=== PATIENT | female | born 1935 | race Caucasian/White ===

== ENCOUNTER → 2017-12-22 14:30 | Outpatient (CLI) | payer MEDICARE, BC, SELFPAY ==
[2017-12-22 15:00] LABS: INR 2.82 (0.9-1.1); Prothrombin Time 30.8 seconds (9.4-11.8)
== END ==
PROVIDERS: PCP Family Medicine; Visit Provider Family Medicine
DX: Z79.01 Long term (current) use of anticoagulants (principal); I48.91 Unspecified atrial fibrillation; Z51.81 Encounter for therapeutic drug level monitoring
CPT/HCPCS: 36415; 85610

== ENCOUNTER → 2018-01-27 16:25 | Outpatient (CLI) | payer MEDICARE, BC, SELFPAY ==
[2018-01-27 16:45] LABS: INR 3.06 (0.9-1.1); Prothrombin Time 33.4 seconds (9.4-11.8)
== END ==
PROVIDERS: Visit Provider Family Medicine
DX: Z79.01 Long term (current) use of anticoagulants (principal); Z51.81 Encounter for therapeutic drug level monitoring; I48.91 Unspecified atrial fibrillation
CPT/HCPCS: 36415; 85610

== ENCOUNTER → 2018-02-04 14:34 | Outpatient (CLI) | payer MEDICARE, BC, SELFPAY ==
[2018-02-04 15:06] LABS: INR 3.22 (0.9-1.1); Prothrombin Time 35.2 seconds (9.4-11.8)
== END ==
PROVIDERS: Visit Provider Family Medicine
DX: Z79.01 Long term (current) use of anticoagulants (principal); Z51.81 Encounter for therapeutic drug level monitoring; I48.91 Unspecified atrial fibrillation
CPT/HCPCS: 36415; 85610

== ENCOUNTER 2018-02-07 13:28 | Inpatient (IN) | payer MEDICARE, BC, SELFPAY ==
[2018-02-07] VITALS (9 sets, daily range): BP systolic 95–105; BP diastolic 57–74; PULSE 80–100; RESP 20; TEMP 36.8–37.6; O2SAT 89–94; BMI 27.3
--- NOTE | 2018-02-07 13:46 | XR_ITS ---
XR chest 2V COMPARISON: None HISTORY: Cough and shortness of breath TECHNIQUE: PA and lateral chest FINDINGS: Borderline emphysematous changes seen with mild hyperexpansion lung bonilla. See no infiltrate. The may be minimal post inflammatory scarring left apex. There is borderline cardio megaly without failure. There is minor dextroscoliotic curvature. Of the thoracic spine and levo scoliotic curvature of the lumbar spine. IMPRESSION: Borderline COPD, no acute chest pathology noted
[2018-02-07 14:31] LABS: Anion Gap 14.6 mEq/L (5-15); Blood Urea Nitrogen 21 mg/dL (7-18); Carbon Dioxide 25 mmol/L (21.0-32.0); Chloride 101 mmol/L (98-107); Creatinine Clearance Estimated 35 mL/min (0-300); Creatinine,Serum 1.54 mg/dL (0.55-1.02); Estimated Glomerular Filt Rate 32 ml/min (>60); GFR (African American) 39 ML/MIN (>60); Glucose 143 mg/dL (74-106); Potassium 4.6 mmoL/L (3.5-5.1); Sodium 136 mmol/L (136-145)
[2018-02-07 14:36] LABS: Basophils % 0.4 % (0.1-2.0); Eosinophils # 0.2 K/mm3 (0.0-0.4); Eosinophils % 2.2 % (0.1-12.0); Hematocrit 40.6 % (37.0-47.0); Hemoglobin 12.9 g/dL (12.2-16.2); Lymphocytes # 1.5 K/mm3 (0.7-4.5); Lymphocytes % 21.3 K/mm3 (10-50); Mean Corpuscular HGB Conc 31.8 g/dL (31.8-35.4); Mean Corpuscular Hemoglobin 28.8 pg (27.0-31.2); Mean Corpuscular Volume 90.5 fl (81-99); Mean Platelet Volume 9.1 fl (7.4-10.4); Monocytes # 0.5 K/mm3 (0.1-1.0); Monocytes % 6.9 % (1.7-9.3); Neutrophils # 4.8 K/mm3 (1.8-7.8); Neutrophils % 69.2 % (37.0-80.0); Platelet Count 144 K/mm3 (142-424); Red Blood Count 4.49 M/mm3 (4.20-5.40); Red Cell Distribution Width 15.2 % (11.5-17.5); White Blood Count 6.9 K/mm3 (4.8-10.8)
[2018-02-07 14:39] LABS: Lactic Acid 1.5 mmol/L (0.4-2.0)
[2018-02-07 14:52] LABS: Mycoplasma Pneumo IGM (Rapid) Non-Reactive (Non-Reactiv)
--- NOTE | 2018-02-07 14:58 | PC.NURSE ---
PATIENT NOW LEAVING OFF THE UNIT FOR HER CHEST XRAY.
[2018-02-07 16:37] LABS: POC Glucose,Bedside 138 mg/dL (70-110)
--- NOTE | 2018-02-07 16:52 | HMH.HP ---
*Admission Date: 02/07/18 *Chief complaint: Cough and shortness of breath *History of present illness: 83 yr old female with h/o atrial fibrillation, type 2 diabetes and remote breast cancer presented to clinic today with c/o cough and congestion for about 4 days. Initially started with nasal symptoms and has progressed to cough that is productive of thick sputum, difficult to expectorate and shortness of breath. Her son has had similar symptoms recently. In the office she was found to be in an irregular rhythm consistent with her history of atrial fibrillation, with a rate of 130, and pulse oximetry of 90% on room air. Her heart rate improved to the 90's with supplemental oxygen. She is normally followed by Dr Peterson in [place] for her primary care [facility] History I have reviewed the patient's past medical history: Yes Medical History: Reports:: Atrial Fibrillation, Cancer, Diabetes Mellitus Type 2 Denies:: Diabetes Mellitus Type 1, MRSA Other Medical History: Reports: Arthritis, Chemotherapy, Hypothyroidism, Radiation Therapy, Thyroid Disease Laterality Cases: Left: Mastectomy Other Surgeries: Yes: Cancer Surgery, Hysterectomy-Total, Other (mastectomy left, r/l hip replace) Amputation: No Fractures: No - *Social History Educational Level: Completed High School Smoking Status: Never smoker Alcohol Intake: never Occupational Status: retired Housing: house - Psychiatric History Expresses thoughts of harming self/others: None Suicide Plan Description: No Plan *Family Hx:: Heart Attack, Hyperlipidemia, Hypertension Review of Systems - Review of Systems Review of systems:: pertinent systems reviewed and negative unless documented below - Constitutional Reports chills, Reports fever(s), Reports weakness - ENT Reports nasal congestion - *Cardiovascular Reports shortness of breath with activity, Reports fast heart rate - *Respiratory Reports chest congestion, Reports cough, Reports shortness of breath with activity - *Gastrointestinal Reports nausea - *Neurologic Reports weakness Meds Home Medications Medication Instructions Recorded Confirmed Type Acetaminophen [Tylenol] 500 mg PO Q4HP PRN 02/07/18 02/07/18 History Cholecalciferol (Vitamin D3) 1,000 unit PO DAILY 02/07/18 02/07/18 History [Vitamin D3 1,000 Unit Cap] Digoxin [Digoxin 0.25mg Tablet] 250 mcg PO DAILY 02/07/18 02/07/18 History Furosemide [Furosemide 20mg Tab] 20 mg PO DAILY 02/07/18 02/07/18 History Letrozole [Letrozole] 2.5 mg PO DAILY 02/07/18 02/07/18 History Levothyroxine Sodium 100 mcg PO DAILY 02/07/18 02/07/18 History [Levothyroxine 125mcg (0.125mg) Tab] Lisinopril [Lisinopril 30mg Tablet] 45 mg PO HS 02/07/18 02/07/18 History Lovastatin [Lovastatin] 40 mg PO DAILY 02/07/18 02/07/18 History Metformin HCl [Metformin 500mg 500 mg PO BID 02/07/18 02/07/18 History Tablet] Multivit-Min/Iron/Folic/Lutein 0.5 each PO BID 02/07/18 02/07/18 History [Centrum Silver Women Tablet] Potassium Chloride [Klor-Con 10 meq PO DAILY 02/07/18 02/07/18 History Sprinkle 10mEq] Sertraline HCl [Zoloft 50mg tablet] 50 mg PO DAILY 02/07/18 02/07/18 History Warfarin Sodium [Warfarin Sodium] 8 mg PO DAILY 02/07/18 02/07/18 History glipiZIDE [Glucotrol 5mg tablet] 5 mg PO BID 02/07/18 02/07/18 History Allergies Allergy/AdvReac Type Severity Reaction Status Date / Time iodine Allergy Intermediate Rash Verified 02/07/18 14:42 Exam Vital signs and Labs for Last 24 Hours: Temp Pulse Resp BP Pulse Ox 98.3 F 80 20 102/74 89 L 02/07/18 13:57 02/07/18 16:00 02/07/18 13:57 02/07/18 13:57 02/07/18 14:13 Laboratory Results - last 24 hr 02/07/18 14:00: Mycoplasma pneumon IgM Non-reactive 02/07/18 14:00: WBC 6.9, RBC 4.49, Hgb 12.9, Hct 40.6, MCV 90.5, MCH 28.8, MCHC 31.8, RDW 15.2, Plt Count 144, MPV 9.1, Neut % (Auto) 69.2, Lymph % (Auto) 21.3, [place] % (Auto) 6.9, Eos % (Auto) 2.2, Baso % (Auto) 0.4, Neut # (Auto) 4.8, Lym
--- NOTE | 2018-02-07 16:57 | P.HP_ITS ---
*Admission Date: 02/07/18 *Chief complaint: Cough and shortness of breath *History of present illness: 83 yr old female with h/o atrial fibrillation, type 2 diabetes and remote breast cancer presented to clinic today with c/o cough and congestion for about 4 days. Initially started with nasal symptoms and has progressed to cough that is productive of thick sputum, difficult to expectorate and shortness of breath. Her son has had similar symptoms recently. In the office she was found to be in an irregular rhythm consistent with her history of atrial fibrillation , with a rate of 130, and pulse oximetry of 90% on room air. Her heart rate improved to the 90's with supplemental oxygen. She is normally followed by Dr Peterson in [place] for her primary care [facility] History I have reviewed the patient's past medical history: Yes Medical History: Reports:: Atrial Fibrillation, Cancer, Diabetes Mellitus Type 2 Denies:: Diabetes Mellitus Type 1, MRSA Other Medical History: Reports: Arthritis, Chemotherapy, Hypothyroidism, Radiation Therapy, Thyroid Disease Laterality Cases: Left: Mastectomy Other Surgeries: Yes: Cancer Surgery, Hysterectomy-Total, Other (mastectomy left , r/l hip replace) Amputation: No Fractures: No - *Social History Educational Level: Completed High School Smoking Status: Never smoker Alcohol Intake: never Occupational Status: retired Housing: house - Psychiatric History Expresses thoughts of harming self/others: None Suicide Plan Description: No Plan *Family Hx:: Heart Attack, Hyperlipidemia, Hypertension Review of Systems - Review of Systems Review of systems:: pertinent systems reviewed and negative unless documented below - Constitutional Reports chills, Reports fever(s), Reports weakness - ENT Reports nasal congestion - *Cardiovascular Reports shortness of breath with activity, Reports fast heart rate - *Respiratory Reports chest congestion, Reports cough, Reports shortness of breath with activity - *Gastrointestinal Reports nausea - *Neurologic Reports weakness Meds Home Medications Medication Instructions Recorded Confirmed Type Acetaminophen [Tylenol] 500 mg PO Q4HP PRN 02/07/18 02/07/18 History Cholecalciferol (Vitamin D3) 1,000 unit PO DAILY 02/07/18 02/07/18 History [Vitamin D3 1,000 Unit Cap] Digoxin [Digoxin 0.25mg Tablet] 250 mcg PO DAILY 02/07/18 02/07/18 History Furosemide [Furosemide 20mg Tab] 20 mg PO DAILY 02/07/18 02/07/18 History Letrozole [Letrozole] 2.5 mg PO DAILY 02/07/18 02/07/18 History Levothyroxine Sodium 100 mcg PO DAILY 02/07/18 02/07/18 History [Levothyroxine 125mcg (0.125mg) Tab] Lisinopril [Lisinopril 30mg Tablet] 45 mg PO HS 02/07/18 02/07/18 History Lovastatin [Lovastatin] 40 mg PO DAILY 02/07/18 02/07/18 History Metformin HCl [Metformin 500mg 500 mg PO BID 02/07/18 02/07/18 History Tablet] Multivit-Min/Iron/Folic/Lutein 0.5 each PO BID 02/07/18 02/07/18 History [Centrum Silver Women Tablet] Potassium Chloride [Klor-Con 10 meq PO DAILY 02/07/18 02/07/18 History Sprinkle 10mEq] Sertraline HCl [Zoloft 50mg tablet] 50 mg PO DAILY 02/07/18 02/07/18 History Warfarin Sodium [Warfarin Sodium] 8 mg PO DAILY 02/07/18 02/07/18 History glipiZIDE [Glucotrol 5mg tablet] 5 mg PO BID 02/07/18 02/07/18 History Allergies Allergy/AdvReac Type Severity Reaction Status Date / Time iodine Allergy Intermediate Rash Verified 02/07
[2018-02-07 17:08] LABS: Adenovirus,PCR Not Detected (NotDetected); Bordetella Pertussis Not Detected (NotDetected); Chlamydophila Pneumoniae, PCR Not Detected (NotDetected); Coronavirus 229E Not Detected (NotDetected); Coronavirus NL63 Not Detected (NotDetected); Coronavirus OC43 Not Detected (NotDetected); Coronovirus HKU1,PCR Not Detected (NotDetected); Human Metapneumovirus Not Detected (NotDetected); Influenza A, PCR Not Detected (NotDetected); Influenza AH1, 2009 Not Detected (NotDetected); Influenza AH1, PCR Not Detected (NotDetected); Influenza AH3,PCR Not Detected (NotDetected); Mycoplasma Pneumoniae, PCR Not Detected (NotDected); Parainfluenza 1, PCR Not Detected (NotDetected); Parainfluenza 2, PCR Not Detected (NotDetected); Parainfluenza 3, PCR Not Detected (NotDetected); Parainfluenza 4, PCR Not Detected (NotDetected); Respiratory Syncytial Virus Not Detected (NotDetected); Rhinovirus/Enterovirus Not Detected (NotDetected)
[2018-02-07 18:21] LABS: Influenza B, PCR Detected (NotDetected)
--- NOTE | 2018-02-07 18:30 | PC.NURSE ---
PATIENT ADMITTED WITH CAP, HAS BEEN STARTED ON LEVAQUIN IV PER THE PROTOCOL, VSS. BLOOD CULTURES ARE PENDING AND WAITING FOR HER PCR TO POST. CXR WAS NEG. FOR PNEUMONIA. WILL CONTINUE TO MONITOR. WE ARE STILL NEEDING TO GET A SPUTUM FROM THE PATIENT WELL.
--- NOTE | 2018-02-07 19:13 | PC.NURSE ---
report given to [facility]
--- NOTE | 2018-02-07 19:34 | PC.NURSE ---
REPORT TO MASTER [facility]
[2018-02-07 20:40] LABS: POC Glucose,Bedside 126 mg/dL (70-110)
[2018-02-08] VITALS (17 sets, daily range): BP systolic 99–123; BP diastolic 50–67; PULSE 72–97; RESP 18–22; TEMP 36.7–37.4; O2SAT 89–96
--- NOTE | 2018-02-08 04:44 | PC.NURSE ---
Addendum entered by Shonda Harris RN 02/08/18 04:45: CONTROLLED ATRIAL FIB ON TELEMETRY. Original Note: PT HAS BEEN AWAKE MOST OF NIGHT. OXYGEN AT 2L PER NC. NONPRODUCTIVE COUGH MOSTLY. DID SEND A SPUTUM TO LAB.
[2018-02-08 06:14] LABS: POC Glucose,Bedside 132 mg/dL (70-110)
[2018-02-08 07:12] LABS: Basophils % 0.5 % (0.1-2.0); Eosinophils # 0.1 K/mm3 (0.0-0.4); Eosinophils % 2.3 % (0.1-12.0); Hematocrit 36.1 % (37.0-47.0); Hemoglobin 11.7 g/dL (12.2-16.2); Lymphocytes # 2.1 K/mm3 (0.7-4.5); Lymphocytes % 35.8 K/mm3 (10-50); Mean Corpuscular HGB Conc 32.4 g/dL (31.8-35.4); Mean Corpuscular Volume 89.3 fl (81-99); Monocytes # 0.4 K/mm3 (0.1-1.0); Neutrophils # 3.2 K/mm3 (1.8-7.8); Neutrophils % 54.4 % (37.0-80.0); Platelet Count 125 K/mm3 (142-424); Red Blood Count 4.04 M/mm3 (4.20-5.40); Red Cell Distribution Width 15.4 % (11.5-17.5); White Blood Count 5.9 K/mm3 (4.8-10.8)
[2018-02-08 07:24] LABS: Anion Gap 14.1 mEq/L (5-15); Blood Urea Nitrogen 20 mg/dL (7-18); Carbon Dioxide 25 mmol/L (21.0-32.0); Chloride 103 mmol/L (98-107); Creatinine Clearance Estimated 43 mL/min (0-300); Creatinine,Serum 1.27 mg/dL (0.55-1.02); Estimated Glomerular Filt Rate 40 ml/min (>60); GFR (African American) 49 ML/MIN (>60); Glucose 144 mg/dL (74-106); Potassium 4.1 mmoL/L (3.5-5.1); Sodium 138 mmol/L (136-145)
[2018-02-08 07:25] LABS: INR 2.13 (0.9-1.1); Prothrombin Time 23.2 seconds (9.4-11.8)
--- NOTE | 2018-02-08 07:28 | P.CONPHA_ITS ---
[facility] Pharmacy VTE Monitoring - Patient Demographics Admission date: 02/07/18 Report Date: 02/08/18 Time: 07:28 Allergies/Adverse Reactions: Patient Allergies iodine Allergy (Intermediate, Verified 02/07/18 14:42) Rash Height: 1.7 m Weight: 79.095 kg Patient Problems: Current Active Problems CAP (community acquired pneumonia) (Acute) Atrial fibrillation with RVR (Acute) Mild dehydration (Acute) SHIMON (acute kidney injury) (Acute) Diabetes type 2, controlled (Chronic) - VTE Risk Labs: VTE Related Lab Results Hgb 12.9 g/dL (12.2-16.2) 02/07/18 14:00 Hct 40.6 % (37.0-47.0) 02/07/18 14:00 Plt Count 144 K/mm3 (142-424) 02/07/18 14:00 BUN 21 mg/dL (7-18) H 02/07/18 14:00 Creatinine 1.54 mg/dL (0.55-1.02) H 02/07/18 14:00 Estimated Creat Clear 35 mL/min (0-300) 02/07/18 14:00 Was VTE Risk Assessment Performed: Yes VTE Score: 4 VTE Risk Level: Low Risk - Prophylaxis VTE Prophylaxis Ordered?: Yes Types of VTE Prophylaxis: TEDS Knee High, Pharmacological Location of Applied Device: Bilateral Lower Extremeties, Not Applicable Pharmacologic Type: Warfarin - VTE Diagnosis Confirmed Treatment or plan recommended: Continue Current Treatment
[2018-02-08 07:44] LABS: Digoxin 0.62 ng/mL (1.15-2.56)
--- NOTE | 2018-02-08 09:07 | HMH.ACPN2 ---
Internal Medicine - PN: Subj *Date: 02/08/18 *Time: 07:45 Interval history: Patient is resting in bed without complaint. States she is feeling a little better. Alert and oriented x3. Rate and rhythm regular. Loose rhonchi with crackles RML/RLL. Abdomen soft and nontender. Exam Vital signs and Labs for Last 24 Hours: Temp Pulse Resp BP Pulse Ox 99.4 F 88 18 99/57 93 L 02/08/18 07:31 02/08/18 07:31 02/08/18 07:31 02/08/18 07:31 02/08/18 07:31 Laboratory Results - last 24 hr 02/07/18 14:00: Mycoplasma pneumon IgM Non-reactive 02/07/18 14:00: WBC 6.9, RBC 4.49, Hgb 12.9, Hct 40.6, MCV 90.5, MCH 28.8, MCHC 31.8, RDW 15.2, Plt Count 144, MPV 9.1, Neut % (Auto) 69.2, Lymph % (Auto) 21.3, [place] % (Auto) 6.9, Eos % (Auto) 2.2, Baso % (Auto) 0.4, Neut # (Auto) 4.8, Lymph # (Auto) 1.5, [place] # (Auto) 0.5, Eos # (Auto) 0.2, Baso # (Auto) 0.0 02/07/18 14:00: Sodium 136, Potassium 4.6, Chloride 101, Carbon Dioxide 25, Anion Gap 14.6, BUN 21 H, Creatinine 1.54 H, Estimated Creat Clear 35, Estimated GFR 32 L, Est GFR ( Amer) 39 L, Glucose 143 H 02/07/18 14:00: Lactic Acid 1.5 02/07/18 16:29: POC Glucose 138 02/07/18 17:00: Chlamy pneumoniae PCR Not detected, Adenovirus (PCR) Not detected, B.parapertussis DNA PCR Not detected, Coronavirus OC43 (PCR) Not detected, Coronavirus HKU1 (PCR) Not detected, Coronavirus 229E (PCR) Not detected, Coronavirus NL63 (PCR) Not detected, Human Metapneumovir PCR Not detected, Influenza A (H1) PCR Not detected, Influ A (H1N1/09) PCR Not detected, Influenza A (H3) PCR Not detected, Influenza Type A (PCR) Not detected, Influenza Type B (PCR) Detected A, M. pneumoniae (PCR) Not detected, Parainfluenza 1 (PCR) Not detected, Parainfluenza 2 (PCR) Not detected, Parainfluenza 3 (PCR) Not detected, Parainfluenza 4 (PCR) Not detected, RSV (PCR) Not detected, Entero/Rhino (PCR) Not detected 02/07/18 20:02: POC Glucose 126 02/08/18 06:04: POC Glucose 132 02/08/18 06:30: WBC 5.9, RBC 4.04 L, Hgb 11.7 L, Hct 36.1 L, MCV 89.3, MCH 29.0, MCHC 32.4, RDW 15.4, Plt Count 125 L, MPV 9.0, Neut % (Auto) 54.4, Lymph % (Auto) 35.8, [place] % (Auto) 7.0, Eos % (Auto) 2.3, Baso % (Auto) 0.5, Neut # (Auto) 3.2, Lymph # (Auto) 2.1, [place] # (Auto) 0.4, Eos # (Auto) 0.1, Baso # (Auto) 0.0 02/08/18 06:30: Sodium 138, Potassium 4.1, Chloride 103, Carbon Dioxide 25, Anion Gap 14.1, BUN 20 H, Creatinine 1.27 H, Estimated Creat Clear 43, Estimated GFR 40 L, Est GFR ( Amer) 49 L D, Glucose 144 H 02/08/18 06:30: PT 23.2 H, INR 2.13 H 02/08/18 06:30: Digoxin 0.62 L I & O for Last 24 hours: Intake & Output 02/05/18 02/06/18 02/07/18 02/08/18 11:59 11:59 11:59 11:59 Intake Total 1522 / 1522 Balance 1522 / 1522 Weight 174 lb 6 oz Assessment and Plan (1) CAP (community acquired pneumonia) Current visit: Yes Status: Acute Category: Medical Code(s): J18.9 - Pneumonia, unspecified organism (2) Atrial fibrillation with RVR Current visit: Yes Status: Acute Category: Medical Code(s): I48.91 - Unspecified atrial fibrillation (3) Mild dehydration Current visit: Yes Status: Acute Category: Medical Code(s): E86.0 - Dehydration (4) SHIMON (acute kidney injury) Current visit: Yes Status: Acute Category: Medical Code(s): N17.9 - Acute kidney failure, unspecified (5) Diabetes type 2, controlled Current visit: Yes Status: Chronic Category: Medical Code(s): E11.9 - Type 2 diabetes mellitus without complications - Assessment and plan all Dx Assessment and Plan for all problems:: Continue IV antibiotics and nebulizer treatment. INR stable today. Will recheck in the am.
--- NOTE | 2018-02-08 09:10 | P.PN_ITS ---
Internal Medicine - PN: Subj *Date: 02/08/18 *Time: 07:45 Interval history: Patient is resting in bed without complaint. States she is feeling a little better. Alert and oriented x3. Rate and rhythm regular. Loose rhonchi with crackles RML/RLL. Abdomen soft and nontender. Exam Vital signs and Labs for Last 24 Hours: Temp Pulse Resp BP Pulse Ox 99.4 F 88 18 99/57 93 L 02/08/18 07:31 02/08/18 07:31 02/08/18 07:31 02/08/18 07:31 02/08/18 07:31 Laboratory Results - last 24 hr 02/07/18 14:00: Mycoplasma pneumon IgM Non-reactive 02/07/18 14:00: WBC 6.9, RBC 4.49, Hgb 12.9, Hct 40.6, MCV 90.5, MCH 28.8, MCHC 31.8, RDW 15.2, Plt Count 144, MPV 9.1, Neut % (Auto) 69.2, Lymph % (Auto) 21.3 , [place] % (Auto) 6.9, Eos % (Auto) 2.2, Baso % (Auto) 0.4, Neut # (Auto) 4.8, Lymph # (Auto) 1.5, [place] # (Auto) 0.5, Eos # (Auto) 0.2, Baso # (Auto) 0.0 02/07/18 14:00: Sodium 136, Potassium 4.6, Chloride 101, Carbon Dioxide 25, Anion Gap 14.6, BUN 21 H, Creatinine 1.54 H, Estimated Creat Clear 35, Estimated GFR 32 L, Est GFR ( Amer) 39 L, Glucose 143 H 02/07/18 14:00: Lactic Acid 1.5 02/07/18 16:29: POC Glucose 138 02/07/18 17:00: Chlamy pneumoniae PCR Not detected, Adenovirus (PCR) Not detected, B.parapertussis DNA PCR Not detected, Coronavirus OC43 (PCR) Not detected, Coronavirus HKU1 (PCR) Not detected, Coronavirus 229E (PCR) Not detected, Coronavirus NL63 (PCR) Not detected, Human Metapneumovir PCR Not detected, Influenza A (H1) PCR Not detected, Influ A (H1N1/09) PCR Not detected , Influenza A (H3) PCR Not detected, Influenza Type A (PCR) Not detected, Influenza Type B (PCR) Detected A, M. pneumoniae (PCR) Not detected, Parainfluenza 1 (PCR) Not detected, Parainfluenza 2 (PCR) Not detected, Parainfluenza 3 (PCR) Not detected, Parainfluenza 4 (PCR) Not detected, RSV (PCR ) Not detected, Entero/Rhino (PCR) Not detected 02/07/18 20:02: POC Glucose 126 02/08/18 06:04: POC Glucose 132 02/08/18 06:30: WBC 5.9, RBC 4.04 L, Hgb 11.7 L, Hct 36.1 L, MCV 89.3, MCH 29.0 , MCHC 32.4, RDW 15.4, Plt Count 125 L, MPV 9.0, Neut % (Auto) 54.4, Lymph % ( Auto) 35.8, [place] % (Auto) 7.0, Eos % (Auto) 2.3, Baso % (Auto) 0.5, Neut # (Auto ) 3.2, Lymph # (Auto) 2.1, [place] # (Auto) 0.4, Eos # (Auto) 0.1, Baso # (Auto) 0.0 02/08/18 06:30: Sodium 138, Potassium 4.1, Chloride 103, Carbon Dioxide 25, Anion Gap 14.1, BUN 20 H, Creatinine 1.27 H, Estimated Creat Clear 43, Estimated GFR 40 L, Est GFR ( Amer) 49 L D, Glucose 144 H 02/08/18 06:30: PT 23.2 H, INR 2.13 H 02/08/18 06:30: Digoxin 0.62 L I & O for Last 24 hours: Intake & Output 02/05/18 02/06/18 02/07/18 02/08/18 11:59 11:59 11:59 11:59 Intake Total 1522 / 1522 Balance 1522 / 1522 Weight 174 lb 6 oz Assessment and Plan (1) CAP (community acquired pneumonia) Current visit: Yes Status: Acute Category: Medical Code(s): J18.9 - Pneumonia, unspecified organism (2) Atrial fibrillation with RVR Current visit: Yes Status: Acute Category: Medical Code(s): I48.91 - Unspecified atrial fibrillation (3) Mild dehydration Current visit: Yes Status: Acute Category: Medical Code(s): E86.0 - Dehydration (4) SHIMON (acute kidney injury) Current visit: Yes Status: Acute Category: Medical Code(s): N17.9 - Acute kidney failure, unspecified (5) Diabetes type 2, controlled Current visit: Yes Status: Chronic Category: Medical Code(s): E11.9 - Type 2 diabetes mellitus without complications - Assessment and plan all Dx Assessment and Plan for all
[2018-02-08 12:16] LABS: POC Glucose,Bedside 174 mg/dL (70-110)
[2018-02-08 16:32] LABS: POC Glucose,Bedside 148 mg/dL (70-110)
--- NOTE | 2018-02-08 18:31 | PC.NURSE ---
PATIENT RESTING IN BED, PATIENT NOW HAS FLU TYPE B, AND IS GETTING TAMIFLU FOR THIS AND LUNGS HAVE SOME RHONCHI THROUGHOUT. PATIENT DID HAVE A LITTLE BIT OF A FEVER OF 99.4 AT 1530 SHE WAS GIVEN SOME TYLENOL AND ROBITUSSIN. SHE IS WANTING TO GO HOME TOMORROW.
[2018-02-08 21:51] LABS: POC Glucose,Bedside 166 mg/dL (70-110)
[2018-02-09] VITALS (7 sets, daily range): BP systolic 102–115; BP diastolic 57–58; PULSE 75–100; RESP 18–22; TEMP 36.6–37.3; O2SAT 91–98
--- NOTE | 2018-02-09 06:18 | PC.NURSE ---
PT SLEPT MOST OF SHIFT. IV SECURE AND PATENT. NO C/O PAIN OR DISCOMFORT REPORTED. RESPIRATIONS EVEN AND UNLABORED. BREATH SOUNDS RHONCHI AND WHEEZES THROUGHOUT. PT STABLE. WILL CONTINUE TO MONITOR. REPORT TO BE GIVEN TO ONCOMING NURSE.
[2018-02-09 06:42] LABS: POC Glucose,Bedside 129 mg/dL (70-110)
[2018-02-09 07:57] LABS: INR 1.68 (0.9-1.1); Prothrombin Time 18.2 seconds (9.4-11.8)
--- NOTE | 2018-02-09 09:10 | HMH.DCSUM ---
General - General Admission date: 02/07/18 Discharge date: 02/09/18 HPI HPI: 83 yr old female with h/o atrial fibrillation, type 2 diabetes and remote breast cancer presented to clinic today with c/o cough and congestion for about 4 days. Initially started with nasal symptoms and has progressed to cough that is productive of thick sputum, difficult to expectorate and shortness of breath. Her son has had similar symptoms recently. In the office she was found to be in an irregular rhythm consistent with her history of atrial fibrillation, with a rate of 130, and pulse oximetry of 90% on room air. Her heart rate improved to the 90's with supplemental oxygen. She is normally followed by Dr Peterson in [place] for her primary care Hospital Course Hospital Course: She was admitted, placed on antibiotics, found to have influenza. Tolerated medications well. Oxygen requirement decreased and she improved over the next couple of days. This morning she had no oxygen requirement, resting comfortably, able to get up and work around the room with her normal ADLs. Exam improved. She will be discharged home with medications, short-term follow-up in our office for this illness. Objective Vital signs: Temp Pulse Resp BP Pulse Ox 99.1 F 77 18 115/58 91 L 02/09/18 07:31 02/09/18 08:44 02/09/18 07:31 02/09/18 07:31 02/09/18 07:31 Narrative: Patient is sleeping comfortably, when awakened she is alert, oriented. No distress, no cyanosis, breathing easily. Lung bonilla are clear in the anterior and posterior bonilla except for some minimal rhonchi. Heart rate regular. Abdomen soft, no extremity perfusion deficits or edema. Results Labs on day of discharge: Labs from last 24 hours 02/09/18 02/09/18 02/08/18 06:50 06:34 21:26 PT 18.2 H INR 1.68 H POC Glucose 129 166 02/08/18 02/08/18 16:23 12:02 PT INR POC Glucose 148 174 Preliminary micro results at discharge 02/07/18 14:10 Blood Culture - Preliminary Blood NO GROWTH AFTER 24 HOURS 02/07/18 14:00 Blood Culture - Preliminary Blood NO GROWTH AFTER 24 HOURS DS: Diagnosis - Discharge Diagnosis (1) Influenza A Status: Acute (2) SHIMON (acute kidney injury) Status: Acute (3) CAP (community acquired pneumonia) Status: Acute (4) Mild dehydration Status: Acute (5) Diabetes type 2, controlled Status: Chronic Discharge Plan - Patient Discharge Instructions ACTIVITY: Limited activity DIET: continue same diet Patient Instructions: Coumadin Vitamin K/ Diet, Coumadin Therapy Booklet - Follow up Plan Follow up with: Luz Ma APRN [Nurse Practitioner] - 02/14/18 Disposition: Home, Self-Senior Living Medications: Home Medications Medication Instructions Recorded Confirmed Type Acetaminophen [Tylenol] 500 mg PO Q4HP PRN 02/07/18 02/07/18 History Cholecalciferol (Vitamin D3) 1,000 unit PO DAILY 02/07/18 02/07/18 History [Vitamin D3 1,000 Unit Cap] Digoxin [Digoxin 0.25mg Tablet] 250 mcg PO DAILY 02/07/18 02/07/18 History Furosemide [Furosemide 20mg Tab] 20 mg PO DAILY 02/07/18 02/07/18 History Letrozole [Letrozole] 2.5 mg PO DAILY 02/07/18 02/07/18 History Levothyroxine Sodium 100 mcg PO DAILY 02/07/18 02/07/18 History [Levothyroxine 125mcg (0.125mg) Tab] Lisinopril [Lisinopril 30mg Tablet] 45 mg PO HS 02/07/18 02/07/18 History Lovastatin [Lovastatin] 40 mg PO DAILY 02/07/18 02/07/18 History Metformin HCl [Metformin 500mg 500 mg PO BID 02/07/18 02/07/18 History Tablet] Multivit-Min/Iron/Folic/Lutein 0.5 each PO BID 02/07/18 02/07/18 History [Centrum Silver Women Tablet] Potassium Chloride [Klor-Con 10 meq PO DAILY 02/07/18 02/07/18 History Sprinkle 10mEq] Sertraline HCl [Zoloft 50mg tablet] 50 mg PO DAILY 02/07/18 02/07/18 History Warfarin Sodium [Warfarin Sodium] 8 mg PO DAILY 02/07/18 02/07/18 History glipiZIDE [Glucotrol 5mg tablet] 5 mg PO
--- NOTE | 2018-02-09 09:14 | P.DS_ITS ---
General - General Admission date: 02/07/18 Discharge date: 02/09/18 HPI HPI: 83 yr old female with h/o atrial fibrillation, type 2 diabetes and remote breast cancer presented to clinic today with c/o cough and congestion for about 4 days. Initially started with nasal symptoms and has progressed to cough that is productive of thick sputum, difficult to expectorate and shortness of breath. Her son has had similar symptoms recently. In the office she was found to be in an irregular rhythm consistent with her history of atrial fibrillation , with a rate of 130, and pulse oximetry of 90% on room air. Her heart rate improved to the 90's with supplemental oxygen. She is normally followed by Dr Peterson in [place] for her primary care Hospital Course Hospital Course: She was admitted, placed on antibiotics, found to have influenza. Tolerated medications well. Oxygen requirement decreased and she improved over the next couple of days. This morning she had no oxygen requirement, resting comfortably , able to get up and work around the room with her normal ADLs. Exam improved. She will be discharged home with medications, short-term follow-up in our office for this illness. Objective Vital signs: Temp Pulse Resp BP Pulse Ox 99.1 F 77 18 115/58 91 L 02/09/18 07:31 02/09/18 08:44 02/09/18 07:31 02/09/18 07:31 02/09/18 07:31 Narrative: Patient is sleeping comfortably, when awakened she is alert, oriented. No distress, no cyanosis, breathing easily. Lung bonilla are clear in the anterior and posterior bonilla except for some minimal rhonchi. Heart rate regular. Abdomen soft, no extremity perfusion deficits or edema. Results Labs on day of discharge: Labs from last 24 hours 02/09/18 02/09/18 02/08/18 06:50 06:34 21:26 PT 18.2 H INR 1.68 H POC Glucose 129 166 02/08/18 02/08/18 16:23 12:02 PT INR POC Glucose 148 174 Preliminary micro results at discharge 02/07/18 14:10 Blood Culture - Preliminary Blood NO GROWTH AFTER 24 HOURS 02/07/18 14:00 Blood Culture - Preliminary Blood NO GROWTH AFTER 24 HOURS DS: Diagnosis - Discharge Diagnosis (1) Influenza A Status: Acute (2) SHIMON (acute kidney injury) Status: Acute (3) CAP (community acquired pneumonia) Status: Acute (4) Mild dehydration Status: Acute (5) Diabetes type 2, controlled Status: Chronic Discharge Plan - Patient Discharge Instructions ACTIVITY: Limited activity DIET: continue same diet Patient Instructions: Coumadin Vitamin K/ Diet, Coumadin Therapy Booklet - Follow up Plan Follow up with: Luz Ma APRN [Nurse Practitioner] - 02/14/18 Disposition: Home, Self-Prison Medications: Home Medications Medication Instructions Recorded Confirmed Type Acetaminophen [Tylenol] 500 mg PO Q4HP PRN 02/07/18 02/07/18 History Cholecalciferol (Vitamin D3) 1,000 unit PO DAILY 02/07/18 02/07/18 History [Vitamin D3 1,000 Unit Cap] Digoxin [Digoxin 0.25mg Tablet] 250 mcg PO DAILY 02/07/18 02/07/18 History Furosemide [Furosemide 20mg Tab] 20 mg PO DAILY 02/07/18 02/07/18 History Letrozole [Letrozole] 2.5 mg PO DAILY 02/07/18 02/07/18 History Levothyroxine Sodium 100 mcg PO DAILY 02/07/1802/07
== END 2018-02-09 10:35 | disposition home or self-care (01) | DRG 195 ==
PROVIDERS: Nurse Practitioner Family; Admitting Provider Internal Medicine Adolescent Medicine; Family Provider Family Medicine; PCP Family Medicine; Visit Provider Internal Medicine Adolescent Medicine
DX: I48.91 Unspecified atrial fibrillation (principal); J10.00 Influenza due to other identified influenza virus with unspecified type of pneumonia; E11.9 Type 2 diabetes mellitus without complications; E86.0 Dehydration; Z79.01 Long term (current) use of anticoagulants; E03.9 Hypothyroidism, unspecified; Z85.3 Personal history of malignant neoplasm of breast
CPT/HCPCS: 36415; 71046; 80048; 80162; 82962; 83605; 85025; 85610; 86738; 87040; 87486; 87581; 87633; 87798; 93005; 94640; 94761; J1956

== ENCOUNTER → 2018-02-17 11:19 | Outpatient (CLI) | payer MEDICARE, BC, SELFPAY ==
[2018-02-17 11:38] LABS: INR 3.49 (0.9-1.1); Prothrombin Time 38.2 seconds (9.4-11.8)
== END ==
PROVIDERS: Visit Provider Family Medicine
DX: Z79.01 Long term (current) use of anticoagulants (principal); Z51.81 Encounter for therapeutic drug level monitoring; I48.91 Unspecified atrial fibrillation
CPT/HCPCS: 36415; 85610

== ENCOUNTER → 2018-02-18 09:04 | Outpatient (CLI) | payer MEDICARE, BC, SELFPAY ==
[2018-02-18 09:29] LABS: INR 2.63 (0.9-1.1); Prothrombin Time 28.7 seconds (9.4-11.8)
== END ==
PROVIDERS: Visit Provider Family Medicine
DX: Z79.01 Long term (current) use of anticoagulants (principal); Z51.81 Encounter for therapeutic drug level monitoring; I48.91 Unspecified atrial fibrillation
CPT/HCPCS: 36415; 85610

== ENCOUNTER → 2018-02-28 14:27 | Outpatient (CLI) | payer MEDICARE, BC, SELFPAY ==
[2018-02-28 15:16] LABS: INR 4.02 (0.9-1.1)
== END ==
PROVIDERS: Visit Provider Family Medicine
DX: Z79.01 Long term (current) use of anticoagulants (principal); Z51.81 Encounter for therapeutic drug level monitoring; I48.91 Unspecified atrial fibrillation
CPT/HCPCS: 36415; 85610

== ENCOUNTER → 2018-03-02 11:38 | Outpatient (CLI) | payer MEDICARE, BC, SELFPAY ==
[2018-03-02 12:26] LABS: INR 2.62 (0.9-1.1); Prothrombin Time 28.6 seconds (9.4-11.8)
== END ==
PROVIDERS: Visit Provider Family Medicine
DX: Z79.01 Long term (current) use of anticoagulants (principal); Z51.81 Encounter for therapeutic drug level monitoring; I48.91 Unspecified atrial fibrillation
CPT/HCPCS: 36415; 85610

== ENCOUNTER → 2018-03-09 14:24 | Outpatient (CLI) | payer MEDICARE, BC, SELFPAY ==
[2018-03-09 15:36] LABS: INR 2.55 (0.9-1.1); Prothrombin Time 27.8 seconds (9.4-11.8)
== END ==
PROVIDERS: Visit Provider Family Medicine
DX: Z79.01 Long term (current) use of anticoagulants (principal); Z51.81 Encounter for therapeutic drug level monitoring; I48.91 Unspecified atrial fibrillation
CPT/HCPCS: 36415; 85610

== ENCOUNTER → 2018-03-28 14:27 | Outpatient (CLI) | payer MEDICARE, BC, SELFPAY ==
[2018-03-28 15:18] LABS: INR 4.23 (0.9-1.1); Prothrombin Time 46.3 seconds (9.4-11.8)
== END ==
PROVIDERS: Visit Provider Family Medicine
DX: Z79.01 Long term (current) use of anticoagulants (principal); Z51.81 Encounter for therapeutic drug level monitoring; I48.91 Unspecified atrial fibrillation
CPT/HCPCS: 36415; 85610

== ENCOUNTER → 2018-03-30 11:57 | Outpatient (CLI) | payer MEDICARE, BC, SELFPAY ==
[2018-03-30 12:32] LABS: INR 2.29 (0.9-1.1); Prothrombin Time 24.9 seconds (9.4-11.8)
== END ==
PROVIDERS: Visit Provider Family Medicine
DX: Z79.01 Long term (current) use of anticoagulants (principal); Z51.81 Encounter for therapeutic drug level monitoring; I48.91 Unspecified atrial fibrillation
CPT/HCPCS: 36415; 85610

== ENCOUNTER → 2018-08-10 09:51 | Outpatient (CLI) | payer MEDICARE, BC, SELFPAY ==
--- NOTE | 2018-08-10 09:54 | XR_ITS ---
XR shoulder LT min 2V Ordering Physician: Miky Hart MD Patient Age: 83 years: Female HISTORY: ITS.REASON: internal, external and y views TECHNIQUE: 3 view left shoulder. AP internal and extra rotation along with Y view. COMPARISON :Previous left shoulder radiograph 07/31/2018 FINDINGS NGS: Severe Comminuted fracture involves the neck of the humerus. The fracture mainly in also surgical neck of the humerus but also extends vertically through the greater tuberosity and likely involving also the anatomical neck of the humerus. There is numerous fracture fragments surrounding this fracture The main portion of articular surface of the humeral head appears rotated & directed slightly downward, & Likely posterior . Again note medial displacement of the distal fracture fragment humerus with lateral angulation ofthe distal fracture fragment. The fracture extends the greatertrochanter. No evidence of dislocation. Surgical clips left axilla likely possibly from axillary dissection IMPRESSION: Stable position of the markedly Comminuted , displaced fracture of the left humeral neck. When compared to 07/31/2018
== END ==
PROVIDERS: PCP Family Medicine; Visit Provider Orthopaedic Surgery
DX: S42.209A Unspecified fracture of upper end of unspecified humerus, initial encounter for closed fracture (principal)
CPT/HCPCS: 73030

== ENCOUNTER → 2018-08-25 10:02 | Outpatient (CLI) | payer MEDICARE, BC, SELFPAY ==
--- NOTE | 2018-08-25 10:05 | XR_ITS ---
XR shoulder LT min 2V HISTORY: Follow-up fracture, pain ITS.REASON: internal, extnernal and y view ORDERING PHYSICIAN: Miky Hart MD PATIENT AGE: 83 years Comparison: 08/10/2018 FINDINGS: Severely comminuted displaced fracture once again noted involving the humeral neck. There is 14 mm medial displacement of the distal fracture fragment. The fracture also extends into the humeral head with mild inferior subluxation of the humeral head. Surgical clips are present in the left axilla. IMPRESSION: Severely comminuted displaced fracture of the left humeral neck and head unchanged
== END ==
PROVIDERS: PCP Family Medicine; Visit Provider Orthopaedic Surgery
DX: S42.202A Unspecified fracture of upper end of left humerus, initial encounter for closed fracture (principal)
CPT/HCPCS: 73030

== ENCOUNTER → 2018-09-16 10:07 | Outpatient (CLI) | payer MEDICARE, BC, SELFPAY ==
--- NOTE | 2018-09-16 10:10 | XR_ITS ---
XR shoulder LT min 2V COMPARISON: Left shoulder 08/10/2018 HISTORY: Follow-up comminuted fracture left humeral neck TECHNIQUE: Internal and external rotation views and Y-view FINDINGS: There is healthy callus formation at the fracture site. There are stable angulation of the humeral head in relationship to the humeral shaft. The clavicle and AC joint appear normal. IMPRESSION: Healing angulated comminuted fracture left humeral neck
== END ==
PROVIDERS: PCP Family Medicine; Visit Provider Orthopaedic Surgery
DX: S42.202A Unspecified fracture of upper end of left humerus, initial encounter for closed fracture (principal)
CPT/HCPCS: 73030

== ENCOUNTER → 2018-10-12 08:59 | Outpatient (CLI) | payer MEDICARE, BC, SELFPAY ==
[2018-10-12 09:13] LABS: Basophils # 0.1 K/mm3 (0-0.2); Basophils % 1.1 % (0.1-2.0); Eosinophils # 0.3 K/mm3 (0.0-0.4); Eosinophils % 6.1 % (0.1-12.0); Hemoglobin 12.8 g/dL (12.2-16.2); Lymphocytes # 1.1 K/mm3 (0.7-4.5); Lymphocytes % 23.5 % (10-50); Mean Corpuscular HGB Conc 31.2 g/dL (31.8-35.4); Mean Corpuscular Hemoglobin 28.5 pg (27.0-31.2); Mean Corpuscular Volume 91.4 fl (81-99); Mean Platelet Volume 9.1 fl (7.4-10.4); Monocytes # 0.3 K/mm3 (0.1-1.0); Monocytes % 5.6 % (1.7-9.3); Neutrophils # 2.9 K/mm3 (1.8-7.8); Neutrophils % 63.7 % (37.0-80.0); Platelet Count 157 K/mm3 (142-424); Red Blood Count 4.49 M/mm3 (4.20-5.40); Red Cell Distribution Width 15.2 % (11.5-17.5); White Blood Count 4.5 K/mm3 (4.8-10.8)
[2018-10-12 09:32] LABS: INR 3.53 (0.9-1.1); Prothrombin Time 35.1 seconds (9.4-11.8)
[2018-10-12 10:04] LABS: Hemoglobin A1C 6.3 % (0.0-7.0)
[2018-10-12 10:22] LABS: Alanine Aminotransferase 21 U/L (12-78); Albumin Level 4.1 gm/dL (3.4-5.0); Albumin/Globulin Ratio 1.1 (1.1-1.8); Alkaline Phosphatase 186 U/L (46-116); Anion Gap 16.4 mEq/L (5-15); Aspartate Amino Transferase 18 U/L (15-37); Bilirubin,Total 0.6 mg/dL (0.2-1.0); Blood Urea Nitrogen 13 mg/dL (7-18); Calcium 9.5 mg/dL (8.5-10.1); Carbon Dioxide 27 mmol/L (21.0-32.0); Chloride 99 mmol/L (98-107); Chol/HDL Ratio 3.9 (1-3.5); Cholesterol 210 mg/dL (140-200); Creatinine,Serum 1.26 mg/dL (0.55-1.02); Estimated Glomerular Filt Rate 41 ml/min (>60); GFR (African American) 49 ML/MIN (>60); Globulin 3.9 gm/dl (1.3-3.2); Glucose 157 mg/dL (74-106); HDL Cholesterol 54 mg/dL (29-89); LDL Cholesterol 115 mg/dL (0-130); Potassium 4.4 mmoL/L (3.5-5.1); Sodium 138 mmol/L (136-145); Thyroid Stimulating Hormone 1.17 uIU/ml (0.358-3.740); Triglycerides 205 mg/dL (30-200); VLDL Cholesterol 41 mg/dL (0-40)
== END ==
PROVIDERS: Visit Provider Nurse Practitioner Family
DX: Z00.00 Encounter for general adult medical examination without abnormal findings (principal); E78.2 Mixed hyperlipidemia; E11.22 Type 2 diabetes mellitus with diabetic chronic kidney disease; Z51.81 Encounter for therapeutic drug level monitoring; Z79.01 Long term (current) use of anticoagulants; I48.2 Chronic atrial fibrillation; N18.3 Chronic kidney disease, stage 3 (moderate); E03.9 Hypothyroidism, unspecified
CPT/HCPCS: 36415; 80053; 80061; 83036; 84443; 85025; 85610

== ENCOUNTER → 2018-10-20 10:11 | Outpatient (CLI) | payer MEDICARE, BC, SELFPAY ==
[2018-10-20 10:44] LABS: Prothrombin Time 19.2 seconds (9.4-11.8)
== END ==
PROVIDERS: Visit Provider Nurse Practitioner Family
DX: Z51.81 Encounter for therapeutic drug level monitoring (principal); Z79.01 Long term (current) use of anticoagulants; I48.91 Unspecified atrial fibrillation
CPT/HCPCS: 36415; 85610

== ENCOUNTER → 2018-11-03 09:08 | Outpatient (CLI) | payer MEDICARE, BC, SELFPAY ==
--- NOTE | 2018-11-03 09:13 | XR_ITS ---
XR shoulder LT min 2V HISTORY: Follow-up fracture ITS.REASON: internal, external y views. ORDERING PHYSICIAN: Miky Hart MD PATIENT AGE: 83 years Comparison: 09/16/2018 FINDINGS: Comminuted mildly displaced fracture once again noted involving the surgical neck of the humerus with extension into the greater trochanteric region. There is medial displacement of the distal fracture fragment. Increasing callous formation is noted laterally. No dislocation. Surgical clips are present in the axilla. IMPRESSION: Healing displaced left humeral neck fracture
== END ==
PROVIDERS: PCP Internal Medicine Adolescent Medicine; Visit Provider Orthopaedic Surgery
DX: S42.202A Unspecified fracture of upper end of left humerus, initial encounter for closed fracture (principal)
CPT/HCPCS: 73030

== ENCOUNTER 2018-11-07 09:30 | Outpatient (RCR) | payer MEDICARE, BC, SELFPAY | END 2018-11-07 09:35 | disposition home or self-care (01) | LOC: PT 09:30 | PROVIDERS: Visit Provider Orthopaedic Surgery | DX: S42.202A Unspecified fracture of upper end of left humerus, initial encounter for closed fracture (principal) | CPT/HCPCS: 97010; 97110; 97140; 97163 ==

== ENCOUNTER → 2018-11-28 12:40 | Outpatient (CLI) | payer MEDICARE, BC, SELFPAY ==
--- NOTE | 2018-11-28 12:42 | XR_ITS ---
XR DEXA axial skeleton HISTORY: ITS.REASON: evaluate for osteoporosis ORDERING PHYSICIAN: Miky Hart MD PATIENT AGE: 83 years COMPARISON: None FINDINGS: The BMD measured at the Left Forearm Radius 33% is 0.764 g/cm squared with a T score of -1.4. This is considered Osteopenic according to the World Health Organization criteria. Fracture risk is Moderate. Treatment is advised. IMPRESSION: Osteopenia with moderate fracture risk. Treatment is advised. Recommend follow-up exam November 2020
== END ==
PROVIDERS: PCP Nurse Practitioner Family; Visit Provider Orthopaedic Surgery
DX: M81.0 Age-related osteoporosis without current pathological fracture (principal)
CPT/HCPCS: 77080

== ENCOUNTER → 2019-01-05 10:16 | Outpatient (CLI) | payer MEDICARE, BC, SELFPAY ==
[2019-01-05 10:33] LABS: Basophils % 0.7 % (0.1-2.0); Eosinophils # 0.2 K/mm3 (0.0-0.4); Eosinophils % 4.4 % (0.1-12.0); Hematocrit 41.3 % (37.0-47.0); Hemoglobin 13.2 g/dL (12.2-16.2); Lymphocytes # 1.1 K/mm3 (0.7-4.5); Lymphocytes % 20.6 % (10-50); Mean Corpuscular HGB Conc 32.1 g/dL (31.8-35.4); Mean Corpuscular Volume 90.4 fl (81-99); Mean Platelet Volume 9.2 fl (7.4-10.4); Monocytes # 0.3 K/mm3 (0.1-1.0); Monocytes % 5.1 % (1.7-9.3); Neutrophils # 3.6 K/mm3 (1.8-7.8); Neutrophils % 69.2 % (37.0-80.0); Platelet Count 162 K/mm3 (142-424); Red Blood Count 4.57 M/mm3 (4.20-5.40); White Blood Count 5.2 K/mm3 (4.8-10.8)
[2019-01-05 10:43] LABS: INR 2.43 (0.9-1.1); Prothrombin Time 24.4 seconds (9.4-11.8)
[2019-01-05 11:57] LABS: Alanine Aminotransferase 24 U/L (12-78); Albumin Level 4.3 gm/dL (3.4-5.0); Albumin/Globulin Ratio 1.1 (1.1-1.8); Alkaline Phosphatase 200 U/L (46-116); Anion Gap 15.4 mEq/L (5-15); Aspartate Amino Transferase 19 U/L (15-37); Blood Urea Nitrogen 19 mg/dL (7-18); Calcium 9.8 mg/dL (8.5-10.1); Carbon Dioxide 26 mmol/L (21.0-32.0); Chloride 99 mmol/L (98-107); Chol/HDL Ratio 3.9 (1-3.5); Cholesterol 211 mg/dL (140-200); Estimated Glomerular Filt Rate 36 ml/min (>60); GFR (African American) 44 ML/MIN (>60); Globulin 3.9 gm/dl (1.3-3.2); Glucose 165 mg/dL (74-106); HDL Cholesterol 54 mg/dL (29-89); LDL Cholesterol 117 mg/dL (0-130); Potassium 4.4 mmoL/L (3.5-5.1); Sodium 136 mmol/L (136-145); Thyroid Stimulating Hormone 1.27 uIU/ml (0.358-3.740); Total Protein,Serum 8.2 gm/dL (6.4-8.2); Triglycerides 200 mg/dL (30-200); VLDL Cholesterol 40 mg/dL (0-40)
[2019-01-05 13:13] LABS: Hemoglobin A1C 7.1 % (0.0-7.0)
== END ==
PROVIDERS: Visit Provider Nurse Practitioner Family
DX: E11.22 Type 2 diabetes mellitus with diabetic chronic kidney disease (principal); E78.2 Mixed hyperlipidemia; N18.3 Chronic kidney disease, stage 3 (moderate); E03.9 Hypothyroidism, unspecified; I48.2 Chronic atrial fibrillation; Z79.01 Long term (current) use of anticoagulants; Z79.84 Long term (current) use of oral hypoglycemic drugs
CPT/HCPCS: 36415; 80053; 80061; 83036; 84443; 85025; 85610

== ENCOUNTER → 2019-01-17 10:59 | Outpatient (POV) | payer MEDICARE, BC, SELFPAY | PROVIDERS: Visit Provider Dermatology | DX: Z00.00 Encounter for general adult medical examination without abnormal findings (principal) ==

== ENCOUNTER → 2019-02-02 09:12 | Outpatient (CLI) | payer MEDICARE, BC, SELFPAY ==
--- NOTE | 2019-02-02 09:22 | XR_ITS ---
XR shoulder LT min 2V HISTORY: ITS.REASON: left proximal humerus fracture, follow-up fracture ORDERING PHYSICIAN: Miky Hart MD PATIENT AGE: 84 years Comparison: 11/03/2018 FINDINGS: Left humeral neck fracture mildly displaced been noted. Fracture line remains visible medially with buttressing of the fracture laterally from callous formation. Humeral head is in place. IMPRESSION: Healing left humeral neck fracture not significant changed mildly displaced
== END ==
PROVIDERS: PCP Internal Medicine Adolescent Medicine; Visit Provider Orthopaedic Surgery
DX: S42.209A Unspecified fracture of upper end of unspecified humerus, initial encounter for closed fracture (principal)
CPT/HCPCS: 73030

== ENCOUNTER → 2019-04-05 10:29 | Outpatient (CLI) | payer MEDICARE, BC, SELFPAY ==
[2019-04-05 11:14] LABS: INR 2.18 (0.9-1.1); Prothrombin Time 21.9 seconds (9.4-11.8)
[2019-04-05 11:48] LABS: Alanine Aminotransferase 23 U/L (12-78); Alkaline Phosphatase 126 U/L (46-116); Anion Gap 13.4 mEq/L (5-15); Aspartate Amino Transferase 17 U/L (15-37); Bilirubin,Total 0.9 mg/dL (0.2-1.0); Blood Urea Nitrogen 16 mg/dL (7-18); Calcium 9.6 mg/dL (8.5-10.1); Carbon Dioxide 28 mmol/L (21.0-32.0); Chloride 102 mmol/L (98-107); Creatinine,Serum 1.26 mg/dL (0.55-1.02); Estimated Glomerular Filt Rate 41 ml/min (>60); GFR (African American) 49 ML/MIN (>60); Glucose 97 mg/dL (74-106); Potassium 4.4 mmoL/L (3.5-5.1); Sodium 139 mmol/L (136-145); Thyroid Stimulating Hormone 1.53 uIU/ml (0.358-3.740)
[2019-04-05 12:36] LABS: Hemoglobin A1C 6.8 % (0.0-7.0)
== END ==
PROVIDERS: Visit Provider Nurse Practitioner Family
DX: Z51.81 Encounter for therapeutic drug level monitoring (principal); Z79.01 Long term (current) use of anticoagulants; I48.2 Chronic atrial fibrillation; N18.2 Chronic kidney disease, stage 2 (mild); E78.2 Mixed hyperlipidemia; E03.9 Hypothyroidism, unspecified; E11.9 Type 2 diabetes mellitus without complications
CPT/HCPCS: 36415; 80053; 83036; 84443; 85610

== ENCOUNTER → 2019-07-12 10:20 | Outpatient (CLI) | payer MEDICARE, BC, SELFPAY ==
[2019-07-12 10:39] LABS: Basophils # 0.1 K/mm3 (0-0.2); Eosinophils # 0.3 K/mm3 (0.0-0.4); Eosinophils % 5.2 % (0.1-12.0); Hematocrit 43.8 % (37.0-47.0); Lymphocytes # 1.3 K/mm3 (0.7-4.5); Lymphocytes % 21.6 % (10-50); Mean Corpuscular Hemoglobin 29.6 pg (27.0-31.2); Mean Corpuscular Volume 92.7 fl (81-99); Mean Platelet Volume 8.8 fl (7.4-10.4); Monocytes # 0.3 K/mm3 (0.1-1.0); Monocytes % 5.9 % (1.7-9.3); Neutrophils # 3.9 K/mm3 (1.8-7.8); Neutrophils % 66.4 % (37.0-80.0); Platelet Count 196 K/mm3 (142-424); Red Blood Count 4.73 M/mm3 (4.20-5.40); Red Cell Distribution Width 15.9 % (11.5-17.5); White Blood Count 5.8 K/mm3 (4.8-10.8)
[2019-07-12 10:48] LABS: INR 2.15 (0.9-1.1); Prothrombin Time 21.6 seconds (9.4-11.8)
[2019-07-12 12:52] LABS: Alanine Aminotransferase 27 U/L (12-78); Albumin Level 4.2 gm/dL (3.4-5.0); Albumin/Globulin Ratio 1.1 (1.1-1.8); Alkaline Phosphatase 152 U/L (46-116); Anion Gap 15.2 mEq/L (5-15); Aspartate Amino Transferase 21 U/L (15-37); Bilirubin,Total 0.9 mg/dL (0.2-1.0); Blood Urea Nitrogen 22 mg/dL (7-18); Calcium 9.9 mg/dL (8.5-10.1); Carbon Dioxide 26 mmol/L (21.0-32.0); Chloride 102 mmol/L (98-107); Chol/HDL Ratio 4.1 (1-3.5); Cholesterol 211 mg/dL (140-200); Creatinine,Serum 1.37 mg/dL (0.55-1.02); Estimated Glomerular Filt Rate 37 ml/min (>60); GFR (African American) 45 ML/MIN (>60); Globulin 3.9 gm/dl (1.3-3.2); Glucose 149 mg/dL (74-106); HDL Cholesterol 51 mg/dL (29-89); LDL Cholesterol 125 mg/dL (0-130); Potassium 5.2 mmoL/L (3.5-5.1); Sodium 138 mmol/L (136-145); Thyroid Stimulating Hormone 2.16 uIU/ml (0.358-3.740); Total Protein,Serum 8.1 gm/dL (6.4-8.2); Triglycerides 177 mg/dL (30-200); VLDL Cholesterol 35 mg/dL (0-40)
[2019-07-12 15:23] LABS: Hemoglobin A1C 6.9 % (0.0-7.0)
== END ==
PROVIDERS: Visit Provider Nurse Practitioner Family
DX: I48.2 Chronic atrial fibrillation (principal); E11.22 Type 2 diabetes mellitus with diabetic chronic kidney disease; E78.2 Mixed hyperlipidemia; N18.2 Chronic kidney disease, stage 2 (mild); E03.9 Hypothyroidism, unspecified; Z51.81 Encounter for therapeutic drug level monitoring; Z79.01 Long term (current) use of anticoagulants; Z79.84 Long term (current) use of oral hypoglycemic drugs
CPT/HCPCS: 36415; 80053; 80061; 83036; 84443; 85025; 85610

== ENCOUNTER → 2019-10-11 10:30 | Outpatient (CLI) | payer MEDICARE, BC, SELFPAY ==
[2019-10-11 11:38] LABS: Basophils % 0.8 % (0.1-2.0); Eosinophils # 0.2 K/mm3 (0.0-0.4); Eosinophils % 3.6 % (0.1-12.0); Hematocrit 41.7 % (37.0-47.0); Hemoglobin 13.5 g/dL (12.2-16.2); Mean Corpuscular HGB Conc 32.3 g/dL (31.8-35.4); Mean Corpuscular Hemoglobin 30.5 pg (27.0-31.2); Mean Corpuscular Volume 94.4 fl (81-99); Mean Platelet Volume 9.1 fl (7.4-10.4); Monocytes # 0.3 K/mm3 (0.1-1.0); Monocytes % 5.7 % (1.7-9.3); Neutrophils # 3.8 K/mm3 (1.8-7.8); Neutrophils % 70.9 % (37.0-80.0); Platelet Count 180 K/mm3 (142-424); Red Blood Count 4.41 M/mm3 (4.20-5.40); Red Cell Distribution Width 15.3 % (11.5-17.5); White Blood Count 5.4 K/mm3 (4.8-10.8)
[2019-10-11 11:39] LABS: INR 2.36 (0.9-1.1); Prothrombin Time 23.6 seconds (9.4-11.8)
[2019-10-11 11:51] LABS: Hemoglobin A1C 6.8 % (0.0-7.0)
[2019-10-11 13:00] LABS: Alanine Aminotransferase 23 U/L (12-78); Albumin/Globulin Ratio 1.1 (1.1-1.8); Alkaline Phosphatase 157 U/L (46-116); Aspartate Amino Transferase 27 U/L (15-37); Bilirubin,Total 0.9 mg/dL (0.2-1.0); Blood Urea Nitrogen 23 mg/dL (7-18); Calcium 9.9 mg/dL (8.5-10.1); Carbon Dioxide 28 mmol/L (21.0-32.0); Chloride 98 mmol/L (98-107); Chol/HDL Ratio 2.5 (1-3.5); Cholesterol 183 mg/dL (140-200); Creatinine,Serum 1.48 mg/dL (0.55-1.02); Estimated Glomerular Filt Rate 34 ml/min (>60); GFR (African American) 41 ML/MIN (>60); Globulin 3.8 gm/dl (1.3-3.2); Glucose 125 mg/dL (74-106); HDL Cholesterol 72 mg/dL (29-89); LDL Cholesterol 85 mg/dL (0-130); Sodium 133 mmol/L (136-145); Thyroid Stimulating Hormone 1.97 uIU/ml (0.358-3.740); Total Protein,Serum 7.8 gm/dL (6.4-8.2); Triglycerides 130 mg/dL (30-200); VLDL Cholesterol 26 mg/dL (0-40)
== END ==
PROVIDERS: Visit Provider Nurse Practitioner Family
DX: Z00.00 Encounter for general adult medical examination without abnormal findings (principal); I10 Essential (primary) hypertension; E78.2 Mixed hyperlipidemia; E11.22 Type 2 diabetes mellitus with diabetic chronic kidney disease; E03.9 Hypothyroidism, unspecified; I48.91 Unspecified atrial fibrillation; Z79.01 Long term (current) use of anticoagulants; Z79.84 Long term (current) use of oral hypoglycemic drugs
CPT/HCPCS: 36415; 80053; 80061; 83036; 84443; 85025; 85610

== ENCOUNTER 2020-03-01 11:39 | Emergency (ER) | payer MEDICARE, BC, SELFPAY ==
[2020-03-01 12:02] VITALS: BP 120/64; PULSE 59; RESP 20; TEMP 36.4; O2SAT 97; BMI 25.0
--- NOTE | 2020-03-01 12:12 | XR_ITS ---
PROCEDURE: XR CHEST 2V CLINICAL HISTORY: COUGH Right lower chest pain and weakness COMPARISON: CXR2V XR chest 2V from 02/07/2018 FINDINGS: Borderline cardiomegaly without failure. There is patchy density in the right mid lower lung zone laterally which could be due to an area of infiltrate not readily apparent the previous exam. There chronic changes in the left apex not significantly changed. Surgical clips are present in the left axilla Degenerative change thoracic spine IMPRESSION: Patchy infiltrate in the right mid lower lung zone laterally Dictated by: Edy Gifford MD 03/01/2020 12:46 Electronically signed by Edy Gifford MD in [place] 03/01/2020 12:46
--- NOTE | 2020-03-01 12:26 | HMH.EDUTC ---
[facility] [place] Clinical Impression: Hypercalcemia RML pneumonia Qualifiers: Pneumonia type: due to unspecified organism Qualified Code(s): J18.9 - Pneumonia, unspecified organism Disposition: Home, Self-Care Condition on Discharge: Fair Instructions: DI for Pneumonia -- Adult Additional Instructions: Hold Metformin, Multivitamin, Calcium (including rolaids, tums, etc) and Vitamin D Hydrate extremely well this Follow up with Dr Rose's office Wednesday If at any time you feel worse this , return to ER and you will be admitted. Prescriptions: Cefdinir [Omnicef 300mg Capsule] 300 mg PO BID #20 cap Transmission Status: Received by [facility] predniSONE [Prednisone 20mg Tab] 20 mg PO BID 5 Days #10 tab Transmission Status: Received by [facility] Azithromycin [Z-Vern 250mg Tab*] 250 mg PO UD DOSE PK #6 tab Transmission Status: Received by [facility] Referrals: Maurizio Rose MD [Primary Care Provider] - Time of Disposition: 15:13 Medical Decision Making - Medical Records Medical records reviewed: Yes: I reviewed the patient's medical records. - Charanjit Inquiry Pt receiving controlled substance: No Vital Signs: 03/01/20 12:02 Temperature 97.5 F L Temperature Source Oral Pulse Rate [Left Radial] 59 L Respiratory Rate 20 Blood Pressure [Right Arm] 120/64 Blood Pressure Mean [Right Arm] 82 Blood Pressure Source [Right Arm] Automatic Cuff Blood Pressure Position [Right Arm] Sitting 02 Sat by Pulse Oximetry 97 Oxygen Delivery Method Room Air - Lab Data Lab results reviewed: Yes: I reviewed the patient's lab results. Lab Results 03/01/20 12:24: WBC 6.3, RBC 4.42, Hgb 13.5, Hct 40.6, MCV 92.0, MCH 30.6, MCHC 33.3, RDW 14.4, Plt Count 185, MPV 9.4, Neut % (Auto) 72.9, Lymph % (Auto) 17.4, Gordon % (Auto) 6.6, Eos % (Auto) 2.1, Baso % (Auto) 1.1, Neut # (Auto) 4.6, Lymph # (Auto) 1.1, Gordon # (Auto) 0.4, Eos # (Auto) 0.1, Baso # (Auto) 0.1 03/01/20 12:24: Sodium 134 L, Potassium 5.1, Chloride 95 L, Carbon Dioxide 27, Anion Gap 17.1 H, BUN 26 H, Creatinine 1.80 H, Estimated Creat Clear 25, Estimated GFR 27 L, Est GFR ( Amer) 32 L, Glucose 148 H, Calcium 14.2 H*, Total Bilirubin 0.7, AST 51 H, ALT 41, Alkaline Phosphatase 215 H, Total Protein 8.4 H, Albumin 4.6, Globulin 3.8 H, Albumin/Globulin Ratio 1.2 03/01/20 12:24: Digoxin 1.00 03/01/20 14:20: Sodium 133 L, Potassium 5.0, Chloride 96 L, Carbon Dioxide 28, Anion Gap 14.0, BUN 27 H, Creatinine 1.70 H, Estimated Creat Clear 26, Estimated GFR 29 L, Est GFR ( Amer) 35 L, Glucose 151 H, Calcium 13.5 H* 03/01/20 14:20: Phosphorus 2.9 Result diagrams: 03/01/20 12:24 03/01/20 14:20 Orders (Tests/Meds): ED MEDICATIONS Generic Name Dose Route Start Last Admin Trade Name Freq PRN Reason Stop Dose Admin Sodium Chloride 1,000 mls @ 999 mls/hr 03/01/20 13:15 03/01/20 13:08 Sod Chlor 0.9% 1000ml Bag IV 03/01/20 14:15 999 mls/hr .Q1H1M GONZALES Administration Discontinued Medications Generic Name Dose Route Start Last Admin Trade Name Freq PRN Reason Stop Dose Admin Ceftriaxone Sodium 1 gm/ 50 mls @ 100 mls/hr 03/01/20 13:04 03/01/20 13:07 Sodium Chloride IV 03/01/20 13:33 100 mls/hr ONCE ONE Administration Protocol Methylprednisolone Sodium Succinate 125 mg 03/01/20 13:04 03/01/20 13:10 Solu-Medrol 125mg/2ml Vial IV 03/01/20 13:05 125 mg ONCE ONE Administration ORDERS Category Date Time Status Parathyroid Hormone Intact Stat Lab 03/01/20 14:21 Ordered - Radiology Data #1 Image(s): Chest Image Reviewed: Yes I reviewed the patient's radiology image, Yes I have reviewed radiologist's interpretation Preliminary Findings: Abnormal (RML infiltrate) Medical Decision Narrative: Spoke with Dr Goins who requested additional labs. Stated that patient could be admitted, but if she was not amenable to being admitted, they would follow up with he
[2020-03-01 12:39] LABS: Basophils # 0.1 K/mm3 (0-0.2); Basophils % 1.1 % (0.1-2.0); Eosinophils # 0.1 K/mm3 (0.0-0.4); Eosinophils % 2.1 % (0.1-12.0); Hematocrit 40.6 % (37.0-47.0); Hemoglobin 13.5 g/dL (12.2-16.2); Lymphocytes # 1.1 K/mm3 (0.7-4.5); Lymphocytes % 17.4 % (10-50); Mean Corpuscular HGB Conc 33.3 g/dL (31.8-35.4); Mean Corpuscular Hemoglobin 30.6 pg (27.0-31.2); Mean Platelet Volume 9.4 fl (7.4-10.4); Monocytes # 0.4 K/mm3 (0.1-1.0); Monocytes % 6.6 % (1.7-9.3); Neutrophils # 4.6 K/mm3 (1.8-7.8); Neutrophils % 72.9 % (37.0-80.0); Platelet Count 185 K/mm3 (142-424); Red Blood Count 4.42 M/mm3 (4.20-5.40); Red Cell Distribution Width 14.4 % (11.5-17.5); White Blood Count 6.3 K/mm3 (4.8-10.8)
[2020-03-01 12:42] LABS: Chloride 95 mmol/L (98-107)
[2020-03-01 12:43] LABS: Potassium 5.1 mmoL/L (3.5-5.1); Sodium 134 mmol/L (136-145)
[2020-03-01 12:45] LABS: Alanine Aminotransferase 41 U/L (12-78); Albumin Level 4.6 g/dl (3.5-5.0); Alkaline Phosphatase 215 U/L (38-126); Aspartate Amino Transferase 51 U/L (14-36); Bilirubin,Total 0.7 mg/dl (0.2-1.3); Blood Urea Nitrogen 26 mg/dl (7-17); Creatinine Clearance Estimated 25 mL/min (50-200); Estimated Glomerular Filt Rate 27 ml/min (>60); GFR (African American) 32 ML/MIN (>60)
[2020-03-01 12:46] LABS: Albumin/Globulin Ratio 1.2 (1.1-1.8); Anion Gap 17.1 mEq/L (5-15); Carbon Dioxide 27 mmol/L (22.0-30.0); Globulin 3.8 g/dL (1.3-3.2); Glucose 148 mg/dl (74-100); Total Protein,Serum 8.4 g/dl (6.3-8.2)
[2020-03-01 12:56] LABS: Calcium 14.2 mg/dl (8.4-10.2)
--- NOTE | 2020-03-01 12:56 | PC.NURSE ---
REPORTED CRITICAL CALCIUM OF 14.2 TO JONNATHAN GARCIA
[2020-03-01 15:01] LABS: Blood Urea Nitrogen 27 mg/dl (7-17); Carbon Dioxide 28 mmol/L (22.0-30.0); Chloride 96 mmol/L (98-107); Creatinine Clearance Estimated 26 mL/min (50-200); Estimated Glomerular Filt Rate 29 ml/min (>60); GFR (African American) 35 ML/MIN (>60); Glucose 151 mg/dl (74-100); Phosphorous 2.9 mg/dl (2.5-4.5); Sodium 133 mmol/L (136-145)
[2020-03-01 15:03] LABS: Calcium 13.5 mg/dl (8.4-10.2)
[2020-03-01 15:20] VITALS: BP 120/64; PULSE 59; RESP 20; TEMP 36.4; O2SAT 97
[2020-03-05 04:25] LABS: Parathyroid Hormone Intact 12 pg/mL (15-65)
== END 2020-03-01 15:30 | disposition home or self-care (01) ==
PROVIDERS: Emergency Provider Physician Assistant; PCP Internal Medicine Adolescent Medicine
DX: J18.9 Pneumonia, unspecified organism (principal); E83.52 Hypercalcemia; E11.9 Type 2 diabetes mellitus without complications; I10 Essential (primary) hypertension; I48.91 Unspecified atrial fibrillation; Z96.641 Presence of right artificial hip joint; Z96.642 Presence of left artificial hip joint; Z90.12 Acquired absence of left breast and nipple
CPT/HCPCS: 71046; 80048; 80053; 80162; 83970; 84100; 85025; 96365; 96375; 99202

== ENCOUNTER 2020-03-05 09:43 | Inpatient (IN) | payer MEDICARE, BC, SELFPAY ==
[2020-03-05 09:47] VITALS: BP 164/81; PULSE 63; RESP 20; TEMP 37; O2SAT 94; BMI 23.8
[2020-03-05 10:20] VITALS: PULSE 88; RESP 20; O2SAT 96
--- NOTE | 2020-03-05 10:24 | CT_ITS ---
PROCEDURE: CT CHEST WO CON CLINICAL INDICATION: SOA, pneumonia, hypercalcemia r/o lung mass COMPARISON: [facility] CT cervical spine wo con from 07/31/2018 XR CHEST 2V from 03/01/2020 TECHNIQUE: Axial images obtained with sagittal and coronal reformats. All CT scans at the facility use one or more dose reduction, viz: automated exposure control, ma/kV adjustment per patient size (including targeted exams where dose is matched to indication, i.e. head), or iterative reconstruction technique. FINDINGS: HEART AND MEDIASTINAL STRUCTURES: There is mild cardiomegaly. Coronary artery calcifications are present and there are calcifications of the aortic valve. No mediastinal or hilar mass. LUNGS AND PLEURAL SPACES: Peripheral consolidation noted in the left apex suggesting an area pneumonia. Atelectatic changes are present in the lung bases. There is trace left-sided effusion and there is mild pleural thickening in the right lung base posteriorly a noncalcified 3 mm nodules present in the right lower lobe posteriorly. A noncalcified 5 mm nodules present in the left upper lobe image 31 series 3 BONY STRUCTURES: There is a nondisplaced right fifth, 6, 7th, 8th, and 9th rib fractures laterally. The 9th rib fracture is minimally offset. There is minimal wedge compression changes of T4 age indeterminate. There is degenerative disc disease in the lower thoracic spine and there is moderate wedge compression of L1 which may be acute with loss of height anteriorly of 40 percent without obvious retropulsion a lucent lesion involves the T6 vertebral body anteriorly at 11 mm as well as T7 anteriorly at 8 mm. The T10 vertebral body has a heterogeneous appearance. There is also some heterogeneous areas of decreased density involving the ribs in multiple areas. UPPER ABDOMEN: Unremarkable. ADDITIONAL FINDINGS: The prior left mastectomy IMPRESSION: 1. Small area of consolidation in the left upper lobe suggesting a small area of pneumonia. Noncalcified nodules in the right lower lobe and left upper lobe nonspecific. These may be neoplastic or inflammatory/infectious. 2. Suspect acute compression deformity at T4 and L1. Suggest MRI of the thoracic spine without and with contrast for further evaluation. 3. Multiple nondisplaced right rib fractures 4. Scattered lucencies of multiple ribs and vertebral bodies suspicious for metastatic disease or multiple myeloma. Dictated by: Edy Gifford MD 03/05/2020 12:31 Electronically signed by Edy Gifford MD in [place] 03/05/2020 12:31
[2020-03-05 11:23] LABS: Adenovirus,PCR Not Detected (NotDetected); Bordetella Pertussis Not Detected (NotDetected); Chlamydophila Pneumoniae, PCR Not Detected (NotDetected); Coronavirus 229E Not Detected (NotDetected); Coronavirus NL63 Not Detected (NotDetected); Coronavirus OC43 Not Detected (NotDetected); Coronovirus HKU1,PCR Not Detected (NotDetected); Human Metapneumovirus Not Detected (NotDetected); Influenza A, PCR Not Detected (NotDetected); Influenza AH1, 2009 Not Detected (NotDetected); Influenza AH1, PCR Not Detected (NotDetected); Influenza AH3,PCR Not Detected (NotDetected); Influenza B, PCR Not Detected (NotDetected); Mycoplasma Pneumoniae, PCR Not Detected (NotDetected); Parainfluenza 1, PCR Not Detected (NotDetected); Parainfluenza 2, PCR Not Detected (NotDetected); Parainfluenza 3, PCR Not Detected (NotDetected); Parainfluenza 4, PCR Not Detected (NotDetected); Respiratory Syncytial Virus Not Detected (NotDetected); Rhinovirus/Enterovirus Not Detected (NotDetected)
[2020-03-05 11:36] LABS: Chloride 84 mmol/L (98-107); INR 2.57 (0.9-1.1); Prothrombin Time 25.6 seconds (9.4-11.8); Sodium 125 mmol/L (136-145)
[2020-03-05 11:37] LABS: Basophils % 0.1 % (0.1-2.0); Eosinophils % 0.1 % (0.1-12.0); Hematocrit 34.9 % (37.0-47.0); Hemoglobin 11.8 g/dL (12.2-16.2); Lymphocytes # 0.6 K/mm3 (0.7-4.5); Lymphocytes % 7.4 % (10-50); Mean Corpuscular HGB Conc 33.8 g/dL (31.8-35.4); Mean Corpuscular Hemoglobin 30.5 pg (27.0-31.2); Mean Platelet Volume 9.8 fl (7.4-10.4); Monocytes # 0.5 K/mm3 (0.1-1.0); Monocytes % 6.1 % (1.7-9.3); Neutrophils # 6.9 K/mm3 (1.8-7.8); Neutrophils % 86.3 % (37.0-80.0); Platelet Count 160 K/mm3 (142-424); Potassium 4.5 mmoL/L (3.5-5.1); Red Blood Count 3.88 M/mm3 (4.20-5.40); Red Cell Distribution Width 14.5 % (11.5-17.5)
[2020-03-05 11:39] LABS: Alanine Aminotransferase 33 U/L (12-78); Albumin Level 4.2 g/dl (3.5-5.0); Albumin/Globulin Ratio 1.2 (1.1-1.8); Alkaline Phosphatase 218 U/L (38-126); Anion Gap 19.5 mEq/L (5-15); Aspartate Amino Transferase 41 U/L (14-36); Bilirubin,Total 1.3 mg/dl (0.2-1.3); Blood Urea Nitrogen 30 mg/dl (7-17); Calcium 10.7 mg/dl (8.4-10.2); Carbon Dioxide 26 mmol/L (22.0-30.0); Creatinine Clearance Estimated 33 mL/min (50-200); Estimated Glomerular Filt Rate 36 ml/min (>60); GFR (African American) 43 ML/MIN (>60); Globulin 3.4 g/dL (1.3-3.2); Glucose 218 mg/dl (74-100); MANUAL DIFFERENTIAL MANUAL DIFFERENTIAL (MANUAL DIFF); Total Protein,Serum 7.6 g/dl (6.3-8.2)
[2020-03-05 11:40] LABS: Lactic Acid 1.1 mmol/L (0.7-2.1)
[2020-03-05 11:58] LABS: Lymphocytes % 6 % (10-50); Monocytes % 10 % (2-9); Neutrophils % 84 % (42-76); Platelet Estimate Normal; RBC Morphology Normal; Total Cells Counted 100
--- NOTE | 2020-03-05 11:58 | PC.NURSE ---
Patient is unsure of home medications, contacted Lei in pharmacy who states he will get a medication list from Dr Abarca office and take care of it.
--- NOTE | 2020-03-05 12:33 | HMH.PHAINT ---
MEDICATION RECONCILIATION COMPLETE. OBTAINED MEDICATION LIST FROM PCP AND CROSS REFERENCED WITH PHARMACY FILL HISTORY. PER PREVIOUS NOTE, PATIENT COULD NOT REMEMBER WHAT MEDICATIONS SHE WAS TAKING.
[2020-03-05 12:36] LABS: POC Glucose,Bedside 232 (70-110)
--- NOTE | 2020-03-05 14:12 | P.CONPHA_ITS ---
[facility] Pharmacy VTE Monitoring - Patient Demographics Admission date: 03/05/20 Report Date: 03/05/20 Time: 14:12 Allergies/Adverse Reactions: Patient Allergies iodine Allergy (Intermediate, Verified 02/02/19 10:33) Rash Height: 1.7 m Weight: 68.946 kg - VTE Risk Labs: VTE Related Lab Results Hgb 11.8 g/dL (12.2-16.2) L 03/05/20 10:57 Hct 34.9 % (37.0-47.0) L 03/05/20 10:57 Plt Count 160 K/mm3 (142-424) 03/05/20 10:57 PT 25.6 seconds (9.4-11.8) H 03/05/20 10:57 INR 2.57 (0.9-1.1) H 03/05/20 10:57 BUN 30 mg/dl (7-17) H 03/05/20 10:57 Creatinine 1.40 mg/dl (0.52-1.04) H 03/05/20 10:57 Estimated Creat Clear 33 mL/min (50-200) 03/05/20 10:57 Was VTE Risk Assessment Performed: Yes VTE Risk Level: Low Risk Clinical Trial Participant: No - Prophylaxis VTE Prophylaxis Ordered?: Yes Types of VTE Prophylaxis: TEDS Knee High
--- NOTE | 2020-03-05 14:52 | HMH.HP ---
*Admission Date: 03/05/20 <Nava Hemphilli 03/05/20 15:02> *Chief complaint: shortness of breath, cough, right back pain <JobyJayne 03/05/20 15:02> *History of present illness: Rounded afternoon of admission without nurse practitioner. Agree with exam findings and care plan as documented. <Sina Goins - 03/05/20 17:39> 85 year old female with h/o breast cancer s/p left mastectomy approx 6 years ago, atrial fib on coumadin, type 2 diabetes, CKD and HTN presented to PCP office today for [facility] FU on pneumonia and hypercalcemia. Patient seen at [facility] 03/01, dx with patchy RML/RLL pneumonia and hypercalcemia around 14. She was treated with IVF's, increased oral hydration, prednisone, cefdinir and azithromycin. Today, patient reports no improvement of SOA. Weakness has increased. Mild dry cough. No fevers. No known sick exposures. Appetite has been poor. Reports severe right mid/upper back pain that increases with movement. Denies trauma, but reports she did slide out of recliner a couple days ago and was not able to get back in her chair. Son reports altered thought processes that past few days. Patient was direct admitted for IV abx and further evaluation. <HemphillJayne 03/05/20 15:02> [facility] History I have reviewed the patient's past medical history: Yes <JobyJayne 03/05/20 15:02> Medical History: Reports:: Atrial Fibrillation, Cancer (breast), Diabetes Mellitus Type 2 Denies:: Diabetes Mellitus Type 1, MRSA <Jayne Hemphill 03/05/20 15:02> *Have you ever received a pneumonia vaccine?: Yes <Jayne Hemphill 03/05/20 15:02> *Have you received a flu vaccine this season?: Yes <Jayne Hemphill 03/05/20 15:02> Other Medical History: Reports: Arthritis, Chemotherapy, Hypothyroidism, Radiation Therapy, Thyroid Disease <Jayne Hemphill 03/05/20 15:02> Laterality Cases: Left: Mastectomy, Bilateral: Total Hip Replacement <Jayne Hemphill 03/05/20 15:02> Other Surgeries: Yes: Cancer Surgery, Hysterectomy-Total, Other <Jayne Hemphill - 03/05/20 15:02> [facility]: No [facility] 03/05/20 15:02> Fractures: Yes (SHOULDER) <Nava Hemphilli 03/05/20 15:02> - *Social History Smoking Status: Never smoker <[facility] 03/05/20 15:02> Alcohol Intake: never <[facility] 03/05/20 15:02> Substance Use Type: denies use <[facility] 03/05/20 15:02> *Occupational Status:: retired <[facility] 03/05/20 15:02> Housing: house <Nava Hemphilli 03/05/20 15:02> Household Members: none <[facility] 03/05/20 15:02> *Travel in the last 8 weeks: None <Nava Hemphilli 03/05/20 15:02> Family Hx:: Heart Attack, Hyperlipidemia, Hypertension <Nava Hemphilli 03/05/20 15:02> Review of Systems - Constitutional Reports anorexia, Reports malaise, Reports weakness <Nava Hemphilli 03/05/20 15:02> - *Respiratory Reports cough, Reports shortness of breath <Nava Hemphilli 03/05/20 15:02> - *Musculoskeletal Reports back pain <Nava Hemphilli 03/05/20 15:02> Meds Home Medications Medication Instructions Recorded Confirmed Type Furosemide [Furosemide 20mg Tab] 20 mg PO DAILY 02/07/18 03/05/20 History Lovastatin 40 mg PO DAILY 02/07/18 03/05/20 History Sertraline HCl [Zoloft 50mg tablet] 25 mg PO DAILY 02/07/18 03/05/20 History Warfarin Sodium 8 mg PO DIRECTED 02/07/18 03/05/20 History glipiZIDE [Glucotrol 5mg tablet] 5 mg PO BID 02/07/18 03/05/20 History Acetaminophen [Acetaminophen Extra 500 mg PO Q6HP PRN 03/05/20 03/05/20 History Strength] Azithromycin [Z-Vern 250mg Tab*] 250 mg PO UD DOSE PK 03/05/20 03/05/20 History Cefdinir [Omnicef 300mg Capsule] 300 mg PO Q12 03/05/20 03/05/20 History Digoxin [Digoxin 0.125mg Tablet] 125 mcg PO DAILY 03/05/20 03/05/20 History Letrozole 2.5 mg PO DAILY 03/05/20 03/05/20 History Levothyroxine Sodium 100 mcg PO DAILY 03/05/20 03/05/20 History [Levothyroxine 100mcg (0.1MG) Tab] Naproxen Sodium [Aleve 220mg Tab] 220 mg PO Q8 03/05/20 03/05/20 History Potassium Chloride [K-Tab ER 10 10 meq PO DAILY
[2020-03-05 16:00] VITALS: BP 102/58; PULSE 61; RESP 20; TEMP 37; O2SAT 96
[2020-03-05 16:57] LABS: POC Glucose,Bedside 197 (70-110)
--- NOTE | 2020-03-05 17:06 | PC.NURSE ---
Patient admitted this shift with failed outpatient treatment for pneumonia and hypercalcemia. Pt has been stable since arrival, CT chest completed results discussed with patient and her son by catherine mi, pt is on RA, lung sounds diminished in bl bases, abd soft and nontender, active bowel sounds in all quads, pt is alert and oriented x4, perrla, facility maintenance helper equal, patient complains of back pain this shift, treated with morphine per emar, vital signs have remained stable, covid19 testing pending, patient remains on contact and airborne isolation precautions in negative pressure room, full PPE worn by staff during all interactions with patient, no s/s of distress noted, will continue to monitor for changes.
[2020-03-05 20:00] VITALS: BP 154/74; PULSE 63; RESP 18; TEMP 35.8; O2SAT 94
--- NOTE | 2020-03-05 21:06 | PC.NURSE ---
Pt A&O x3 and currently sleeping at this time. Upon assessment @ 1999, Pt stated that pain has improved with PO medication. She was assisted per staff to BSC and then repositioning in bed. Pt is weak with ambulation. Pt had 150 cc urine output plus incontinent brief. VSS. Pt remains on RA @ 94%. Lungs diminished in bilateral bases. No sputum obtained at this time. Skin intact. Pt noted to have scattered bruising to (R) side of back and LUE. FSBS 132. NS infusing @ 100 ml/hr. Call light within reach. Pt educated to use call light when needing assistance. No other concerns at this time. Will continue to monitor.
[2020-03-05 22:33] VITALS: TEMP 36.7
[2020-03-06] VITALS (7 sets, daily range): BP systolic 121–151; BP diastolic 58–80; PULSE 52–86; RESP 18–20; TEMP 36.2–37; O2SAT 93–97; BMI 24.3; BMI 24.2
--- NOTE | 2020-03-06 04:39 | PC.NURSE ---
Pt has rested well tonight. Continues to c/o discomfort but states that it is better since she started taking PO medication. She has ambulated to [facility] this shift with assistance. Pt gets very fatigued during ambulation. VSS. Pt is currently on 2L NC. Pt desat as low as 86% briefly while sleeping. Will begin to titrate when pt wakes in AM. Lungs diminished in bilateral bases. She has not c/o soa. Sputum not obtained at this time. Urine output 1200 cc total at this time. She also has been incontinent and wears a brief. Pt declined to have bath. Will pass onto AM nurse to try today. No other concerns at this time. Call light within reach. Will continue to monitor.
[2020-03-06 06:30] LABS: Basophils % 0.3 % (0.1-2.0); Eosinophils # 0.1 K/mm3 (0.0-0.4); Eosinophils % 0.7 % (0.1-12.0); Hematocrit 34.2 % (37.0-47.0); Lymphocytes # 1.1 K/mm3 (0.7-4.5); Lymphocytes % 14.1 % (10-50); Mean Corpuscular HGB Conc 32.2 g/dL (31.8-35.4); Mean Corpuscular Hemoglobin 29.6 pg (27.0-31.2); Mean Corpuscular Volume 91.7 fl (81-99); Mean Platelet Volume 8.8 fl (7.4-10.4); Monocytes # 0.5 K/mm3 (0.1-1.0); Monocytes % 6.7 % (1.7-9.3); Neutrophils % 78.3 % (37.0-80.0); Platelet Count 150 K/mm3 (142-424); Red Blood Count 3.73 M/mm3 (4.20-5.40); Red Cell Distribution Width 14.5 % (11.5-17.5); White Blood Count 7.6 K/mm3 (4.8-10.8)
[2020-03-06 06:48] LABS: Chloride 98 mmol/L (98-107); Potassium 4.3 mmoL/L (3.5-5.1); Sodium 130 mmol/L (136-145)
[2020-03-06 06:50] LABS: Blood Urea Nitrogen 26 mg/dl (7-17); Creatinine Clearance Estimated 35 mL/min (50-200); Estimated Glomerular Filt Rate 39 ml/min (>60); GFR (African American) 47 ML/MIN (>60)
[2020-03-06 06:51] LABS: Alanine Aminotransferase 26 U/L (12-78); Albumin Level 3.5 g/dl (3.5-5.0); Albumin/Globulin Ratio 1.2 (1.1-1.8); Alkaline Phosphatase 159 U/L (38-126); Anion Gap 8.3 mEq/L (5-15); Aspartate Amino Transferase 35 U/L (14-36); Bilirubin,Total 0.9 mg/dl (0.2-1.3); Calcium 10.6 mg/dl (8.4-10.2); Carbon Dioxide 28 mmol/L (22.0-30.0); Glucose 111 mg/dl (74-100); Total Protein,Serum 6.5 g/dl (6.3-8.2)
--- NOTE | 2020-03-06 08:54 | PC.NURSE ---
PT IS RESTING IN BED. COVID 19 RESULTS STILL PENDING AT THIS TIME. PT REFUSED BATH THIS MORNING DUE TO PAIN WITH MOVEMENT. ALERT AND ORIENTED X3. PT HAS BRUISING NOTED TO THE BACK AND LUE. PT HAS NOT HAD MUCH OF AN APPETITE BUT WAS ABLE TO TOLERATE A BOWL OF OATMEAL AND 120 ML'S OF ORANGE JUICE. LUNG SOUNDS DIMINISHED. BOWEL SOUNDS HYPOACTIVE. PT STATED HER LAST BOWEL MOVEMENT WAS 03/04. PT ALSO STATES SHE HAS PROBLEMS WITH CONSTIPATION. VSS. PORTIAS NOTED BLE. WILL CONTINUE TO MONITOR.
[2020-03-06 11:48] LABS: POC Glucose,Bedside 132 (70-110)
[2020-03-06 11:48] LABS: POC Glucose,Bedside 148 (70-110)
[2020-03-06 11:48] LABS: POC Glucose,Bedside 111 (70-110)
[2020-03-06 14:29] LABS: Albumin 3.4 g/dL (2.9-4.4); Alpha-1-Globulin 0.4 g/dL (0.0-0.4); Alpha-2-Globulin 0.9 g/dL (0.4-1.0); Gamma Globulin 1.3 g/dL (0.4-1.8); Protein, Total 7.1 g/dL (6.0-8.5)
[2020-03-06 16:24] LABS: POC Glucose,Bedside 198 (70-110)
--- NOTE | 2020-03-06 18:15 | HMH.ACPN2 ---
Internal Medicine - PN: Subj *Date: 03/06/20 *Time: 18:15 Interval history: Patient has done well over the past 24 hours since admission. She is been able to be weaned off oxygen, and pain control has been achieved with oral and intravenous medication. Remains alert, pleasant and responsive in her negative pressure isolation room. Exam Vital signs and Labs for Last 24 Hours: Temp Pulse Resp BP Pulse Ox 97.9 F 71 18 151/75 H 93 L 03/06/20 16:00 03/06/20 16:00 03/06/20 16:00 03/06/20 16:00 03/06/20 16:00 Laboratory Results - last 24 hr 03/05/20 19:53: POC Glucose 132 H 03/06/20 05:55: WBC 7.6, RBC 3.73 L, Hgb 11.0 L, Hct 34.2 L, MCV 91.7, MCH 29.6, MCHC 32.2, RDW 14.5, Plt Count 150, MPV 8.8, Neut % (Auto) 78.3, Lymph % (Auto) 14.1, Bath % (Auto) 6.7, Eos % (Auto) 0.7, Baso % (Auto) 0.3, Neut # (Auto) 6.0, Lymph # (Auto) 1.1, Bath # (Auto) 0.5, Eos # (Auto) 0.1, Baso # (Auto) 0.0 03/06/20 05:55: Sodium 130 L, Potassium 4.3, Chloride 98, Carbon Dioxide 28, Anion Gap 8.3, BUN 26 H, Creatinine 1.30 H, Estimated Creat Clear 35, Estimated GFR 39 L, Est GFR ( Amer) 47 L, Glucose 111 H D, Calcium 10.6 H, Total Bilirubin 0.9, AST 35, ALT 26, Alkaline Phosphatase 159 H, Total Protein 6.5, Albumin 3.5 D, Globulin 3.0, Albumin/Globulin Ratio 1.2 03/06/20 06:14: POC Glucose 111 H 03/06/20 11:14: POC Glucose 148 H 03/06/20 16:05: POC Glucose 198 H I & O for Last 24 hours: Intake & Output 03/04/20 03/05/20 03/06/20 03/07/20 11:59 11:59 11:59 11:59 Intake Total 733 / 733 1228 / 1228 Output Total 2200 / 2200 700 / 700 Balance -1467 / -1467 528 / 528 Weight 152 lb 155 lb 154 lb 5.177 oz Narrative: , Alert, oriented x3. Oropharynx clear, no JVD. Lungs have good air movement. Status post mastectomy bilaterally. Heart rate better, good rate control Abdomen soft, no visible edema. Neurologically intact. Assessment and Plan (1) Left upper lobe pneumonia Current visit: Yes Status: Acute Qualifiers: Pneumonia type: due to unspecified organism Qualified Code(s): J18.9 - Pneumonia, unspecified organism Category: Medical Code(s): J18.9 - Pneumonia, unspecified organism (2) Thoracic compression fracture Current visit: Yes Status: Acute Qualifiers: Thoracic vertebra fracture level: T4 Category: Medical Code(s): S22.000A - Wedge compression fracture of unspecified thoracic vertebra, initial encounter for closed fracture (3) Lumbar compression fracture Current visit: Yes Status: Acute Qualifiers: Lumbar vertebra fracture level: L1 Category: Medical Code(s): S32.000A - Wedge compression fracture of unspecified lumbar vertebra, initial encounter for closed fracture (4) Multiple rib fractures Current visit: Yes Status: Acute Qualifiers: Encounter type: initial encounter Fracture type: closed Laterality: right Qualified Code(s): S22.41XA - Multiple fractures of ribs, right side, initial encounter for closed fracture Category: Medical Code(s): S22.49XA - Multiple fractures of ribs, unspecified side, initial encounter for closed fracture (5) Hypercalcemia Current visit: Yes Status: Acute Category: Medical Code(s): E83.52 - Hypercalcemia (6) Bone lesion Current visit: Yes Status: Acute Category: Medical Code(s): M89.9 - Disorder of bone, unspecified (7) Diabetes type 2, controlled Current visit: No Status: Chronic Category: Medical Code(s): E11.9 - Type 2 diabetes mellitus without complications (8) Atrial fibrillation Current visit: Yes Status: Acute Category: Medical Code(s): I48.91 - Unspecified atrial fibrillation (9) Kidney disease, chronic, stage II (GFR 60-89 ml/min) Current visit: Yes Status: Acute Category: Medical Code(s): N18.2 - Chronic kidney disease, stage 2 (mild) - Assessment and plan all Dx Assessment and Plan for all problems:: Given presentation with significant
[2020-03-06 21:08] LABS: POC Glucose,Bedside 168 (70-110)
[2020-03-07] VITALS: BP 163/102; PULSE 75; RESP 20; TEMP 36.6; O2SAT 95
[2020-03-07 04:00] VITALS: BP 153/80; PULSE 65; RESP 20; TEMP 36.1; O2SAT 93
[2020-03-07 05:00] VITALS: BMI 23.5
[2020-03-07 07:23] LABS: Chloride 101 mmol/L (98-107)
[2020-03-07 07:24] LABS: Potassium 4.4 mmoL/L (3.5-5.1); Sodium 133 mmol/L (136-145)
[2020-03-07 07:25] LABS: INR 1.64 (0.9-1.1); Prothrombin Time 16.7 seconds (9.4-11.8)
[2020-03-07 07:26] LABS: Blood Urea Nitrogen 21 mg/dl (7-17); Creatinine Clearance Estimated 37 mL/min (50-200); Estimated Glomerular Filt Rate 43 ml/min (>60); GFR (African American) 52 ML/MIN (>60)
[2020-03-07 07:27] LABS: Anion Gap 11.4 mEq/L (5-15); Calcium 10.7 mg/dl (8.4-10.2); Carbon Dioxide 25 mmol/L (22.0-30.0); Glucose 141 mg/dl (74-100)
--- NOTE | 2020-03-07 07:40 | PC.NURSE ---
Pt is A&Ox4 and has ambulated with staff x1 SBA and tolerated fair d/t pain with ambulating. Pt was medicated per MAR for pain. Lungs were CTA, pt continues on room air with sats of 91-94%. ABD is soft and non-tender with active BS. Pt's last BM was 03/04/20. Pt denied any N/V/D. Irregular heart rhythm noted, pt has a h/o afib. TEDS in place BLE. Pt had a weight loss of 5lb. However, pt was very painful this am and staff x2 assisted pt into the standing position for the standing scale, and pt was unable to completely stand on her own and required staff to hold her up. Will attempt to obtained weight when pt is more comfortable. VSS, call light within each, will continue to monitor.
[2020-03-07 07:48] VITALS: BP 141/79; PULSE 70; RESP 20; TEMP 36.4; O2SAT 94
[2020-03-07 08:04] LABS: POC Glucose,Bedside 134 (70-110)
[2020-03-07 08:23] VITALS: PULSE 70
[2020-03-07 08:47] VITALS: BMI 25.3
[2020-03-07 08:58] LABS: Covid-19 Nasal PCR Sendout Lex NOT DETECTED
--- NOTE | 2020-03-07 09:49 | PC.NURSE ---
Called report to Dahlia Wisdom RN. Pt to M/S floor @ approx [phone]
[2020-03-07 11:04] LABS: POC Glucose,Bedside 184 (70-110)
--- NOTE | 2020-03-07 11:27 | PC.NURSE ---
notified specialty clinic about consult. Dr. Smith has been up to see pt.
--- NOTE | 2020-03-07 11:32 | PC.NURSE ---
0830-notified and of negative COVID 19 results.
--- NOTE | 2020-03-07 12:43 | HMH.ACPN2 ---
Internal Medicine - PN: Subj *Date: 03/07/20 *Time: 12:43 Exam Vital signs and Labs for Last 24 Hours: Temp Pulse Resp BP Pulse Ox 97.6 F 70 20 141/79 H 94 L 03/07/20 07:48 03/07/20 08:23 03/07/20 07:48 03/07/20 07:48 03/07/20 07:48 Laboratory Results - last 24 hr 03/05/20 10:57: Total Protein (PEP) 7.1, Albumin (PEP) 3.4, Globulin (PEP) 3.7, Albumin/Globulin Ratio 0.9, Comwp-2-Lqrcihozn 0.4, Sfina-5-Ddkdhndrk 0.9, Beta Globulins 1.1, Gamma Globulins 1.3, M-Blaze Not observed, PEP Note Comment 03/05/20 11:15: COVID-19 (EDI) Not detected 03/06/20 16:05: POC Glucose 198 H 03/06/20 20:49: POC Glucose 168 H 03/07/20 06:58: POC Glucose 134 H 03/07/20 07:00: PT 16.7 H, INR 1.64 H 03/07/20 07:00: Sodium 133 L, Potassium 4.4, Chloride 101, Carbon Dioxide 25, Anion Gap 11.4, BUN 21 H, Creatinine 1.20 H, Estimated Creat Clear 37, Estimated GFR 43 L, Est GFR ( Amer) 52 L, Glucose 141 H, Calcium 10.7 H 03/07/20 10:54: POC Glucose 184 H I & O for Last 24 hours: Intake & Output 03/04/20 03/05/20 03/06/20 03/07/20 23:59 23:59 23:59 23:59 Intake Total 763 / 763 1468 / 1468 1528 / 1528 Output Total 1550 / 1550 1350 / 1350 Balance -787 / -787 118 / 118 1528 / 1528 Weight 68.946 kg 70 kg 73.227 kg Microbiology Reports for the Last 24 Hours: Microbiology 03/05/20 10:57 Blood Blood Culture - Preliminary NO GROWTH AFTER 48 HOURS 03/05/20 10:57 Blood Blood Culture - Preliminary NO GROWTH AFTER 48 HOURS Assessment and Plan (1) Left upper lobe pneumonia Current visit: Yes Status: Acute Qualifiers: Pneumonia type: due to unspecified organism Qualified Code(s): J18.9 - Pneumonia, unspecified organism Category: Medical Code(s): J18.9 - Pneumonia, unspecified organism (2) Thoracic compression fracture Current visit: Yes Status: Acute Qualifiers: Thoracic vertebra fracture level: T4 Category: Medical Code(s): S22.000A - Wedge compression fracture of unspecified thoracic vertebra, initial encounter for closed fracture (3) Lumbar compression fracture Current visit: Yes Status: Acute Qualifiers: Lumbar vertebra fracture level: L1 Category: Medical Code(s): S32.000A - Wedge compression fracture of unspecified lumbar vertebra, initial encounter for closed fracture (4) Multiple rib fractures Current visit: Yes Status: Acute Qualifiers: Encounter type: initial encounter Fracture type: closed Laterality: right Qualified Code(s): S22.41XA - Multiple fractures of ribs, right side, initial encounter for closed fracture Category: Medical Code(s): S22.49XA - Multiple fractures of ribs, unspecified side, initial encounter for closed fracture (5) Hypercalcemia Current visit: Yes Status: Acute Category: Medical Code(s): E83.52 - Hypercalcemia (6) Bone lesion Current visit: Yes Status: Acute Category: Medical Code(s): M89.9 - Disorder of bone, unspecified (7) Diabetes type 2, controlled Current visit: No Status: Chronic Category: Medical Code(s): E11.9 - Type 2 diabetes mellitus without complications (8) Atrial fibrillation Current visit: Yes Status: Acute Category: Medical Code(s): I48.91 - Unspecified atrial fibrillation (9) Kidney disease, chronic, stage II (GFR 60-89 ml/min) Current visit: Yes Status: Acute Category: Medical Code(s): N18.2 - Chronic kidney disease, stage 2 (mild)
--- NOTE | 2020-03-07 13:31 | HMH.CONS ---
*Admission Date: 03/05/20 *Reason for consult:: h/o breast cancer; new bone lesions *History of present illness: 85 yo wf admitted to the hospital after falling. she is also being treated for pna. pt had ct s can demonstrating bone lesions concerning for metastasis or multiple myeloma per radiology report. pt has a h/o breast cancer 6 years ago and is s/p mastectomy. she is followed by Dr. Carroll at . [facility] due to COVID 19. myeloma labs are pending. [facility] History Medical History: Reports:: Atrial Fibrillation, Cancer (breast), Diabetes Mellitus Type 2 Denies:: Diabetes Mellitus Type 1, MRSA *Have you ever received a pneumonia vaccine?: Yes *Have you received a flu vaccine this season?: Yes Other Medical History: Reports: Arthritis, Chemotherapy, Hypothyroidism, Radiation Therapy, Thyroid Disease Laterality Cases: Left: Mastectomy, Bilateral: Total Hip Replacement Other Surgeries: Yes: Cancer Surgery, Hysterectomy-Total, Other Amputation: No Fractures: Yes (SHOULDER) - *Social History Smoking Status: Never smoker Alcohol Intake: never Substance Use Type: denies use *Occupational Status:: retired Housing: house Household Members: none *Travel in the last 8 weeks: None Family Hx:: Heart Attack, Hyperlipidemia, Hypertension Review of Systems - *Respiratory Reports cough, Reports shortness of breath - *Musculoskeletal Reports back pain - *Neurologic Reports weakness Meds Home Medications Medication Instructions Recorded Confirmed Type Furosemide [Furosemide 20mg Tab] 20 mg PO DAILY 02/07/18 03/05/20 History Lovastatin 40 mg PO DAILY 02/07/18 03/05/20 History Sertraline HCl [Zoloft 50mg tablet] 25 mg PO DAILY 02/07/18 03/05/20 History Warfarin Sodium 8 mg PO DIRECTED 02/07/18 03/05/20 History glipiZIDE [Glucotrol 5mg tablet] 5 mg PO BID 02/07/18 03/05/20 History Acetaminophen [Acetaminophen Extra 500 mg PO Q6HP PRN 03/05/20 03/05/20 History Strength] Azithromycin [Z-Vern 250mg Tab*] 250 mg PO UD DOSE PK 03/05/20 03/05/20 History Cefdinir [Omnicef 300mg Capsule] 300 mg PO Q12 03/05/20 03/05/20 History Digoxin [Digoxin 0.125mg Tablet] 125 mcg PO DAILY 03/05/20 03/05/20 History Letrozole 2.5 mg PO DAILY 03/05/20 03/05/20 History Levothyroxine Sodium 100 mcg PO DAILY 03/05/20 03/05/20 History [Levothyroxine 100mcg (0.1MG) Tab] Naproxen Sodium [Aleve 220mg Tab] 220 mg PO Q8 03/05/20 03/05/20 History Potassium Chloride [K-Tab ER 10 10 meq PO DAILY 03/05/20 03/05/20 History mEq] Warfarin Sodium 2 mg PO MOWEFR 03/05/20 03/05/20 History lisinopriL [Lisinopril 40mg Tablet] 40 mg PO DAILY 03/05/20 03/05/20 History predniSONE [Prednisone 20mg 20 mg PO BID 03/05/20 03/05/20 History Tab] Allergies Allergy/AdvReac Type Severity Reaction Status Date / Time iodine Allergy Intermediate Rash Verified 02/02/19 10:33 Exam Vital signs and Labs for Last 24 Hours: Temp Pulse Resp BP Pulse Ox 97.6 F 70 20 141/79 H 94 L 03/07/20 07:48 03/07/20 08:23 03/07/20 07:48 03/07/20 07:48 03/07/20 07:48 Laboratory Results - last 24 hr 03/05/20 10:57: Total Protein (PEP) 7.1, Albumin (PEP) 3.4, Globulin (PEP) 3.7, Albumin/Globulin Ratio 0.9, Vjblc-0-Ljlovvpsv 0.4, Zrqqn-1-Wyetnfajv 0.9, Beta Globulins 1.1, Gamma Globulins 1.3, M-Blaze Not observed, PEP Note Comment 03/05/20 11:15: COVID-19 (EDI) Not detected 03/06/20 16:05: POC Glucose 198 H 03/06/20 20:49: POC Glucose 168 H 03/07/20 06:58: POC Glucose 134 H 03/07/20 07:00: PT 16.7 H, INR 1.64 H 03/07/20 07:00: Sodium 133 L, Potassium 4.4, Chloride 101, Carbon Dioxide 25, Anion Gap 11.4, BUN 21 H, Creatinine 1.20 H, Estimated Creat Clear 37, Estimated GFR 43 L, Est GFR ( Amer) 52 L, Glucose 141 H, Calcium 10.7 H 03/07/20 10:54: POC Glucose 184 H I & O for Last 24 hours: Intake & Output 03/05/20 03/06/20 03/07/20 03/08/20 11:59 11:59 11:59 11:59 Intake Total 883 / 883
--- NOTE | 2020-03-07 13:45 | PC.NURSE ---
pt given neb treatment with hypertonic saline at this time to induce sputtum sample. Pt has dry cough and states she is very weak. She was given a cup and understands to call when she produces a sample in said cup.
[2020-03-07 14:12] LABS: Peripheral Smear Review Scanned Result
[2020-03-07 14:31] LABS: Albumin, U 33.6 % (.); Alpha-1-Globulin, U 6.4 % (.); Alpha-2-Globulin, U 22.1 % (.); Beta Globulin, U 24.5 % (.); Gamma Globulin, U 13.4 % (.); M-Spike, % 8.7 % (Not Observed); Protein,Total,Urine 5.5 mg/dL (Not Estab.)
--- NOTE | 2020-03-07 15:57 | PC.NURSE ---
REPORT GIVEN TO YESENIA THAO AT [facility], [place], [facility]
[2020-03-07 16:00] VITALS: BP 172/78; PULSE 72; RESP 20; TEMP 36.6; O2SAT 94
--- NOTE | 2020-03-07 16:08 | HMH.DCSUM ---
General - General Admission date:: 03/05/20 Discharge date: 03/07/20 HPI HPI: 85 year old female with h/o breast cancer s/p mastectomy approx 6 years ago, atrial fib on coumadin, type 2 diabetes, CKD, and HTN presented to PCP office today for [facility] FU on pneumonia and hypercalcemia. Patient seen at [facility] 03/01, dx with patchy RML/RLL pneumonia and hypercalcemia around 14. She was treated with IVF's, increased oral hydration, prednisone, cefdinir and azithromycin. Today, patient reports no improvement of SOA. Weakness has increased. Mild dry cough. No fevers. No known sick exposures. Appetite has been poor. Reports severe right mid/upper back pain that increases with movement. Denies trauma, but reports she did slide out of recliner a couple days ago and was not able to get back in her chair. Son reports altered thought processes that past few days. Patient was direct admitted for IV abx and further evaluation. Hospital Course Hospital Course: 85-year-old female history of breast cancer admitted for acute kidney injury, hypercalcemia, pain, pathologic fractures. Additionally found to have pneumonia on admission. Respiratory -Transitioned to IV antibiotics after admission. Had been started on oral therapy by [facility] 4 days prior. Showing some improvement clinically. No oxygen requirement. Given respiratory symptoms however and finding on imaging, was ruled out for COVID-19. COVID-19 test sent to and returned the evening of 03/06. Negative result. Antibiotics initiated on the , plan was to complete 7 days. Cardiac -History of A. fib, on Coumadin. Continued digoxin, held Coumadin at time of admission due to antibiotics and potential need for bone marrow biopsy. PT therapeutic on admission at 2.5, 1.5 today (03/07). Plan to resume warfarin with repeat INR in the morning. Musculoskeletal -Imaging with findings of multiple rib fractures on right side and compression fractures in vertebrae. Related to new lesions suspected to be secondary to metastatic versus primary cancer. Labs obtained to work-up multiple myeloma however given patient's history of breast cancer, cannot rule out metastatic disease. Please see oncology note for full assessment. Oncology had no plan to do further inpatient interim mentions as patient desires to maintain care with her oncologist at [facility]. This led to a consult of [facility] for possible transfer and palliative treatment for her pain as well as diagnosis of cancer. Patient was graciously accepted for further management of her pain and work-up of cancer. Medically stable for discharge at this time. Pain regimen at time of discharge (opiate na?ve on admission) 7.5 mg oxycodone 4 times a day with PRN morphine 2 mg for breakthrough Renal SHIMON on CKD at admission. Gradual improvement in creatinine with IV fluid rehydration. Hypercalcemia -PTH normal. Suspected from metastatic bone lesions. Improved significantly from [facility] to time of admission from approximately 14.5 to 10.7. Monitor during admission. Remained stable in mid 10 range. Patient continued to complain of pain on day of discharge. Denies shortness of breath, chest pain, nausea, vomiting, diarrhea. Poor p.o. intake. Attempting to work with nursing but limited in mobility due to her pain. Objective Vital signs: Temp Pulse Resp BP Pulse Ox 97.6 F 70 20 141/79 H 94 L 03/07/20 07:48 03/07/20 08:23 03/07/20 07:48 03/07/20 07:48 03/07/20 07:48 Narrative: In mild distress, alert, oriented x3, elderly Oropharynx clear, no JVD. Lungs have good air movement. Status post mastectomy bilaterally. Heart rate controlled, rhythm irregular, systolic murmur grade 3 out of 6 Chest wall tender along right posterior thorax Abdomen soft, no visible edema. Neurologically intact. Elbows with abrasions, no active bleeding Results Labs on day of discharge: Labs from last 24 hours 03/07
[2020-03-07 16:19] LABS: POC Glucose,Bedside 154 (70-110)
--- NOTE | 2020-03-07 17:15 | PC.NURSE ---
Nurse is aware
== END 2020-03-07 18:00 | disposition short-term general hospital (02) | DRG 194 ==
LOC: ICU 03-06 17:18 → 2ND 03-07 08:27
PROVIDERS: Nurse Practitioner Family; Admitting Provider Internal Medicine Adolescent Medicine; PCP Internal Medicine Adolescent Medicine; Visit Provider Internal Medicine Adolescent Medicine
DX: J18.9 Pneumonia, unspecified organism (principal); S22.41XA Multiple fractures of ribs, right side, initial encounter for closed fracture; S22.040A Wedge compression fracture of fourth thoracic vertebra, initial encounter for closed fracture; S32.010A Wedge compression fracture of first lumbar vertebra, initial encounter for closed fracture; I48.20 Chronic atrial fibrillation, unspecified; C79.51 Secondary malignant neoplasm of bone; M84.58XA Pathological fracture in neoplastic disease, other specified site, initial encounter for fracture; C90.00 Multiple myeloma not having achieved remission; Z79.01 Long term (current) use of anticoagulants; I12.9 Hypertensive chronic kidney disease with stage 1 through stage 4 chronic kidney disease, or unspecified chronic kidney disease; E11.22 Type 2 diabetes mellitus with diabetic chronic kidney disease; N18.2 Chronic kidney disease, stage 2 (mild); Z90.710 Acquired absence of both cervix and uterus; E03.9 Hypothyroidism, unspecified; Z85.3 Personal history of malignant neoplasm of breast; Z90.12 Acquired absence of left breast and nipple; Z91.81 History of falling; Z79.899 Other long term (current) drug therapy; E83.52 Hypercalcemia
CPT/HCPCS: 36415; 71250; 80048; 80053; 82962; 83605; 84155; 84156; 84165; 84166; 85007; 85025; 85610; 87040; 87486; 87581; 87633; 87798; J1956